=== PATIENT | male | born 1950 | race Caucasian/White ===

== ENCOUNTER 2023-10-27 21:29 | Inpatient (IN) | payer OTHER, SELFPAY ==
[2023-10-27 17:38] VITALS: BP 150/66
[2023-10-27 18:05] LABS: % Basophils 0.3 % (0-2); % Immature Granulocytes 0.8 % (0-0.5); % Monocytes 1.4 % (1.7-9.3); % Neutrophils 90.5 % (42.2-75.2); Absolute Immature Granulocytes 0.1 10^3/uL (0-0.05); Absolute Lymphocytes 0.5 10^3/uL (1.2-3.4); Absolute Monocytes 0.1 10^3/uL (0.1-0.6); Absolute Neutrophils 6.9 10^3/uL (1.4-6.5); Hematocrit 34.7 % (39.0-52.0); Hemoglobin 12.4 g/dL (13.0-18.0); Mean Corp Hgb Conc. 35.7 g/dL (33.0-37.0); Mean Corpuscular Hgb 32.5 pg (27.0-31.0); Mean Corpuscular Volume 90.8 fL (80.0-94.0); Mean Platelet Volume 10.3 fL (7.4-10.4); Nucleated Red Blood Cells % 0 % (-); Platelet Count 358 10^3/uL (130-400); Red Blood Cell Count 3.82 10^6/uL (4.70-6.10); Red Cell Dist. Width 15.7 % (11.5-14.5); White Blood Cell Count 7.7 10^3/uL (4.8-10.8)
[2023-10-27 18:18] LABS: Lactic Acid 1.3 mmol/L (0.7-2.0)
[2023-10-27 18:28] LABS: ALT (SGPT) 592 U/L (0-50); AST (SGOT) 392 U/L (17-59); Albumin 4.5 g/dl (3.5-5.0); Alkaline Phosphatase 825 U/L (38-126); Blood Urea Nitrogen 20 mg/dl (9-20); Calcium 9.7 mg/dl (8.4-10.2); Carbon Dioxide 23 mmol/L (22-30); Chloride 100 mmol/L (98-107); Glucose 207 mg/dl (70-99); Potassium 5.2 mmol/L (3.5-5.1); Sodium 131 mmol/L (135-145); Total Bilirubin 5.7 mg/dl (0.2-1.3); Total Protein 7.6 g/dl (6.3-8.2); eGFR > 60.00
--- NOTE | 2023-10-27 19:02 | ED.GENMED ---
History of Present Illness
<Mouna Grady PA-C - Last Filed: 11/05/23 22:41>
General
Chief Complaint: Abnormal Lab Value
Source: patient
Exam Limitations: none
Time Seen by Provider: 10/27/23 18:44
Nursing documentation reviewed up to this point in time: agreed with
Travel History
Have you had any contact with someone who has COVID-19?: No
Do you have any symptoms of coronavirus? Fever > 100 degrees, chills, cough, shortness of breath, sore throat, loss of taste or smell, muscle aches, or headache?: No
History of Present Illness
History of Present Illness:
Patient is a 72 year old male with hx HTN, HLD presenting for evaluation following abnormal lab results. He has been experiencing recent itchiness of his skin and yellowing of his skin and eyes for the past few days. He had lab work done from his
primary care provider which showed an elevated bilirubin over 8 yesterday and his primary care provider referred him to the emergency department for further evaluation. He also endorses recent intermittent heartburn over the past few weeks. He
denies any chest pain, shortness of breath, fevers, chills, weight loss. He denies any abdominal pain, nausea, vomiting, blood in stool. He denies any constipation or diarrhea. Patient had an appendectomy in May and .
Patient drinks 'a few 'beers per day. No recent travel or history of liver disease.
He was recently started on prednisone 2 days ago for the itching which has led to very minimal improvement.
Patient's mom from pancreatic cancer.
Past History
<Mouna Grady PA-C - Last Filed: 11/05/23 22:41>
Past History
ED Past Medical History: None
Social History
Living: with family
Phy Exam
<Mouna Grady PA-C - Last Filed: 11/05/23 22:41>
Physical Exam
Physical Exam:
General: In no apparent distress, non-toxic
Vitals: Hypertensive, otherwise vital signs stable; afebrile
HEENT: Atraumatic, normocephalic; pupils equal round reactive light bilaterally, scleral icterus bilaterally, protecting airway
Neck: appears supple, no meningeal signs
CV: Regular rate and rhythm, heart sounds normal no evidence of cyanosis
Resp: No evidence of respiratory distress, lungs clear, no accessory muscle use
Abd: Soft, nontender in all 4 quadrants, no rebound or guarding, non-distended, no abdominal ascites; negative Resendiz sign
Extremities: No deformities, no evidence of cyanosis or edema
Neuro: alert and oriented to person, place, time; speech normal, no focal neurologic deficits
Psych: Normal affect
Skin: Jaundice, scattered excoriation
Course
<Mouna Grady PA-C - Last Filed: 11/05/23 22:41>
Orders/Labs/Results
Orders:
Orders
10/27/23 17:54
Complete Blood Count/With Diff Urgent
Comprehensive Metabolic Panel Urgent
Direct Bilirubin Urgent
Lactic Acid Urgent
Lipase Urgent
Blood Culture Urgent
CARYN Source: Blood/Venous
Specimen Description:
10/27/23 19:34
Electrocardiogram (*1) Urgent
Reason for Study: Chest Pain
EKG- Treatment ONCE
10/27/23 19:37
Add On- LAB Urgent
Tests Added?: direct/ indirect billirubin
US Abdomen Complete/Upper Urgent
Comment:
Reason For Exam: jaundice, transaminitis
10/27/23 19:52
Hepatitis A IgM Antibody Urgent
Hepatitis B Core Ab, IgM Urgent
Hepatitis B Surface Antibody Urgent
Hepatitis B Surface Antigen Urgent
Hepatitis C Antibody Urgent
PTT Urgent
Prothrombin Time Urgent
Urinalysis Reflex To Culture Urgent
Date Specimen was Collected: 10/27/23
Time Specimen was Collected: 19:46
Urine Microscopic Reflex Cult Urgent
10/27/23 21:12
Admit/Transfer Patient As Directed
Co-Sign Provider:
Level of Care: Inpatient admission
Assign to:: Medical/Surgical
Physician / Group: Don
Diagnosis: Painless Jaundice
Reason for Hospitalization: Painless Jaundice
Expected length of stay greater than two midnights?: Yes
ELOS- Estimated Length of Stay in days: 2
I certify the patient meets the requirements for IP care: Yes
10/27/23 21:13
Code Status As Directed
Resuscitation Status: Full Code
10/27/23 22:16
0.9% Sodium Chloride 1000 ml [Nss] 1,000 ml IV 125 mls/hr
0.9% Sodium Chloride [Nss (Preservative Free)] See Protocol IV PRN PRN
FOLic ACID [Folvite] 1 mg 0.9% Sodium Chloride 50 ml [Nss] 50 ml IV DAILYPRN
Lorazepam [Ativan] 1 mg IV Q1HPRN PRN
Lorazepam [Ativan] 1 mg PO Q2HPRN PRN
Lorazepam [Ativan] 2 mg IV Q1HPRN PRN
Ondansetron Injectable [Zofran] 4 mg IV Q6HPRN PRN
10/27/23 22:16
Case Management Consult Once
Case Management Consult: Other
Comment: Substance abuse counseling
DIETARY CONSULT Routine
Reason for Consult: Nutrition support, possible refeeding guidelines
TSH Reflex To Free T4 Routine
Activity As Directed
Activity Level: Ambulate
With Assistance
Bladder Scan As Directed
Follow Bladder Retention/Intermittent Cath Algorithm?: Yes
PRN if no void in __ hours: 6
Frequency: Per Retention Algorithm
If Bladder Scan Result >: 400
then:: Straight cath
I/O [Intake/ Output] As Directed
Frequency: Per unit guidelines
MSAS SCORE As Directed
MSAS Score 0-4: Repeat MSAS every 2 hours until 0-4 for three consecutive assessments, then every 4 hours x 48
hours.
MSAS Score 5-7: For MILD withdrawl symptoms. Repeat MSAS and RASS every 2 hours
MSAS Score 8-11: For MODERATE withdrawal symptoms. Repeat MSAS and RASS every 1 hour. Consider ICU or IMU
level of care.
MSAS Score > 11: For SEVERE withdrawal symptoms. Repeat MSAS and RASS every 1 hour. Notify provider, consider
ICU level of care.
MSAS Additional Instructions: If no improvement or no decrease in score from severe to moderate within 12
hours, consult psychiatry
MSAS Notify Provider: Notify provider if patient requires more than 10 mg of Lorazepam in eight hour period.
Straight Cath As Directed
Frequency: Per Retention Algorithm
Additional Instructions: straight cath as needed per acute urinary retention algorithm for 24 hrs
Additional Instructions: for bladder scan greater than 400 mL
Vital Signs As Directed
Frequency: Per unit guidelines
Weight As Directed
Frequency: Daily
Oxygen Therapy [O2 Therapy] [RESP] Routine
Titrate/Wean O2 to maintain O2 sat greater than (%): 94
DX Deep Vein Thrombosis Video Routine
10/28/23 Breakfast
Clear Liquid
At Your Request: Full Participation
Does patient need a safe tray?: No
10/28/23 06:32
MRI Abdomen [MR Abdomen W/o & W Contrast] IN AM
Comment: MRCP
Reason For Exam: Painless Jaundice
Recent pill cam endoscopy?: No
10/28/23 07:17
Complete Blood Count/No Diff IN AM
Magnesium IN AM
10/28/23 08:00
Amlodipine Besylate/Benazepril [Lotrel 10 mg/20 mg] 1 capsule PO DAILY
Aspirin Low Dose EC [Aspir Low (Enteric Coated)] 81 mg PO DAILY
Atorvastatin [Lipitor] 20 mg PO DAILY
FOLic ACID [Folvite] 1 mg PO DAILY
Heparin 5,000 units SC Q12
Pantoprazole [Protonix IV] 40 mg IV DAILY
Thiamine Injection 200 mg IV Q12
10/31/23 08:00
Thiamine HCl [Vitamin B1] 100 mg PO BID
Abnormal Lab Results
10/27/23 10/27/23
17:54 19:52
RBC 3.82 L 10^6/uL
(4.70-6.10)
Hgb 12.4 L g/dL
(13.0-18.0)
Hct 34.7 L %
(39.0-52.0)
MCH 32.5 H pg
(27.0-31.0)
RDW 15.7 H %
(11.5-14.5)
Abs Immat Gran (auto) 0.1 H 10^3/uL
(0-0.05)
Absolute Neuts (auto) 6.9 H 10^3/uL
(1.4-6.5)
Absolute Lymphs (auto) 0.5 L 10^3/uL
(1.2-3.4)
Immature Gran % 0.8 H %
(0-0.5)
Neutrophils % 90.5 H %
(42.2-75.2)
Lymphocytes % 7.0 L %
(20.5-51.1)
Monocytes % 1.4 L %
(1.7-9.3)
Sodium 131 L mmol/L
(135-145)
Potassium 5.2 H mmol/L
(3.5-5.1)
Creatinine 0.5 L mg/dL
(0.7-1.3)
Glucose 207 H mg/dl
(70-99)
Total Bilirubin 5.7 H mg/dl
(0.2-1.3)
Direct Bilirubin 4.5 H mg/dl
(0.0-0.4)
AST 392 H U/L
(17-59)
ALT 592 H* U/L
(0-50)
Alkaline Phosphatase 825 H U/L
(38-126)
Lipase > 4000 H* U/L
(23-300)
Urine Bilirubin 1+ A
(Negative)
Leukocyte Esterase Rfl Trace A
(Negative)
Urine Glucose 2+ A
(Negative)
10/27/23 17:54
10/27/23 17:54
Vital Signs
Initial and Last Documented VS:
Initial Vital Signs
Temp Pulse Resp BP Pulse Ox
98.6 F 68 18 150/66 96
10/27/23 17:38 10/27/23 17:38 10/27/23 17:38 10/27/23 17:38 10/27/23 17:38
Last Documented Vital Signs
Temp Pulse Resp BP Pulse Ox
97.3 F 75 18 109/60 97
10/31/23 11:35 10/31/23 11:35 10/31/23 11:35 10/31/23 11:35 10/31/23 14:35
<Gus Kidd, DO - Last Filed: 10/28/23 03:14>
Orders/Labs/Results
Orders:
Orders
10/27/23 17:54
Complete Blood Count/With Diff Urgent
Comprehensive Metabolic Panel Urgent
Direct Bilirubin Urgent
Lactic Acid Urgent
Lipase Urgent
Blood Culture Urgent
CARYN Source: Blood/Venous
Specimen Description:
10/27/23 19:34
Electrocardiogram (*1) Urgent
Reason for Study: Chest Pain
EKG- Treatment ONCE
10/27/23 19:37
Add On- LAB Urgent
Tests Added?: direct/ indirect billirubin
US Abdomen Complete/Upper Urgent
Comment:
Reason For Exam: jaundice, transaminitis
10/27/23 19:52
Hepatitis A IgM Antibody Urgent
Hepatitis B Core Ab, IgM Urgent
Hepatitis B Surface Antibody Urgent
Hepatitis B Surface Antigen Urgent
Hepatitis C Antibody Urgent
PTT Urgent
Prothrombin Time Urgent
Urinalysis Reflex To Culture Urgent
Date Specimen was Collected: 10/27/23
Time Specimen was Collected: 19:46
Urine Microscopic Reflex Cult Urgent
10/27/23 21:12
Admit/Transfer Patient As Directed
Co-Sign Provider:
Level of Care: Inpatient admission
Assign to:: Medical/Surgical
Physician / Group: Don
Diagnosis: Painless Jaundice
Reason for Hospitalization: Painless Jaundice
Expected length of stay greater than two midnights?: Yes
ELOS- Estimated Length of Stay in days: 2
I certify the patient meets the requirements for IP care: Yes
10/27/23 21:13
Code Status As Directed
Resuscitation Status: Full Code
10/27/23 22:16
0.9% Sodium Chloride 1000 ml [Nss] 1,000 ml IV 125 mls/hr
0.9% Sodium Chloride [Nss (Preservative Free)] See Protocol IV PRN PRN
FOLic ACID [Folvite] 1 mg 0.9% Sodium Chloride 50 ml [Nss] 50 ml IV DAILYPRN
Lorazepam [Ativan] 1 mg IV Q1HPRN PRN
Lorazepam [Ativan] 1 mg PO Q2HPRN PRN
Lorazepam [Ativan] 2 mg IV Q1HPRN PRN
Ondansetron Injectable [Zofran] 4 mg IV Q6HPRN PRN
10/27/23 22:16
Case Management Consult Once
Case Management Consult: Other
Comment: Substance abuse counseling
DIETARY CONSULT Routine
Reason for Consult: Nutrition support, possible refeeding guidelines
TSH Reflex To Free T4 Routine
Activity As Directed
Activity Level: Ambulate
With Assistance
Bladder Scan As Directed
Follow Bladder Retention/Intermittent Cath Algorithm?: Yes
PRN if no void in __ hours: 6
Frequency: Per Retention Algorithm
If Bladder Scan Result >: 400
then:: Straight cath
I/O [Intake/ Output] As Directed
Frequency: Per unit guidelines
MSAS SCORE As Directed
MSAS Score 0-4: Repeat MSAS every 2 hours until 0-4 for three consecutive assessments, then every 4 hours x 48
hours.
MSAS Score 5-7: For MILD withdrawl symptoms. Repeat MSAS and RASS every 2 hours
MSAS Score 8-11: For MODERATE withdrawal symptoms. Repeat MSAS and RASS every 1 hour. Consider ICU or IMU
level of care.
MSAS Score > 11: For SEVERE withdrawal symptoms. Repeat MSAS and RASS every 1 hour. Notify provider, consider
ICU level of care.
MSAS Additional Instructions: If no improvement or no decrease in score from severe to moderate within 12
hours, consult psychiatry
MSAS Notify Provider: Notify provider if patient requires more than 10 mg of Lorazepam in eight hour period.
Straight Cath As Directed
Frequency: Per Retention Algorithm
Additional Instructions: straight cath as needed per acute urinary retention algorithm for 24 hrs
Additional Instructions: for bladder scan greater than 400 mL
Vital Signs As Directed
Frequency: Per unit guidelines
Weight As Directed
Frequency: Daily
Oxygen Therapy [O2 Therapy] [RESP] Routine
Titrate/Wean O2 to maintain O2 sat greater than (%): 94
DX Deep Vein Thrombosis Video Routine
10/28/23 Breakfast
Clear Liquid
At Your Request: Full Participation
Does patient need a safe tray?: No
10/28/23 06:32
MRI Abdomen [MR Abdomen W/o & W Contrast] IN AM
Comment: MRCP
Reason For Exam: Painless Jaundice
Recent pill cam endoscopy?: No
10/28/23 07:17
Complete Blood Count/No Diff IN AM
Magnesium IN AM
10/28/23 08:00
Amlodipine Besylate/Benazepril [Lotrel 10 mg/20 mg] 1 capsule PO DAILY
Aspirin Low Dose EC [Aspir Low (Enteric Coated)] 81 mg PO DAILY
Atorvastatin [Lipitor] 20 mg PO DAILY
FOLic ACID [Folvite] 1 mg PO DAILY
Heparin 5,000 units SC Q12
Pantoprazole [Protonix IV] 40 mg IV DAILY
Thiamine Injection 200 mg IV Q12
10/31/23 08:00
Thiamine HCl [Vitamin B1] 100 mg PO BID
Abnormal Lab Results
10/27/23 10/27/23
17:54 19:52
RBC 3.82 L 10^6/uL
(4.70-6.10)
Hgb 12.4 L g/dL
(13.0-18.0)
Hct 34.7 L %
(39.0-52.0)
MCH 32.5 H pg
(27.0-31.0)
RDW 15.7 H %
(11.5-14.5)
Abs Immat Gran (auto) 0.1 H 10^3/uL
(0-0.05)
Absolute Neuts (auto) 6.9 H 10^3/uL
(1.4-6.5)
Absolute Lymphs (auto) 0.5 L 10^3/uL
(1.2-3.4)
Immature Gran % 0.8 H %
(0-0.5)
Neutrophils % 90.5 H %
(42.2-75.2)
Lymphocytes % 7.0 L %
(20.5-51.1)
Monocytes % 1.4 L %
(1.7-9.3)
Sodium 131 L mmol/L
(135-145)
Potassium 5.2 H mmol/L
(3.5-5.1)
Creatinine 0.5 L mg/dL
(0.7-1.3)
Glucose 207 H mg/dl
(70-99)
Total Bilirubin 5.7 H mg/dl
(0.2-1.3)
Direct Bilirubin 4.5 H mg/dl
(0.0-0.4)
AST 392 H U/L
(17-59)
ALT 592 H* U/L
(0-50)
Alkaline Phosphatase 825 H U/L
(38-126)
Lipase > 4000 H* U/L
(23-300)
Urine Bilirubin 1+ A
(Negative)
Leukocyte Esterase Rfl Trace A
(Negative)
Urine Glucose 2+ A
(Negative)
10/27/23 17:54
10/27/23 17:54
Vital Signs
Initial and Last Documented VS:
Initial Vital Signs
Temp Pulse Resp BP Pulse Ox
98.6 F 68 18 150/66 96
10/27/23 17:38 10/27/23 17:38 10/27/23 17:38 10/27/23 17:38 10/27/23 17:38
Last Documented Vital Signs
Temp Pulse Resp BP Pulse Ox
97.3 F 75 18 109/60 97
10/31/23 11:35 10/31/23 11:35 10/31/23 11:35 10/31/23 11:35 10/31/23 14:35
<Mouna Grady PA-C - Last Filed: 11/05/23 22:41>
MDM/Problems Addressed
Differential Diagnosis Includes:
malignancy, choledocholithiasis, hepatitis, cirrhosis, CBD stricture, cholangitis
MDM/Problems Addressed:
Patient is a 72 year old male with hx HTN, HLD presenting for evaluation of full body itchiness in the setting of abnormal bilirubin levels on outpatient labwork. Patient had outpatient labwork performed yesterday which showed elevation in liver
enzymes and a bilirubin level of 8. Denies fever, chills, abdominal pain, headache, shortness of breath, weight loss. Of note- patients mother had a history of pancreatic cancer. Patient is hypertensive, otherwise has stable vital signs. Physical
exam as documented above. He has notable jaundice of skin and scleral icterus bilaterally. His abdomen is soft and nontender with a negative Resendiz sign. Will get basic labs, lipase, bilirubin and abdominal US. Will send hepatitis panel and coag
studies. Given age and history of nonpainful jaundice - malignancy is high on differential. Plan to admit for further workup pending initial labs.
CBC significant for mild anemia with hgb of 12.4.Coag studies normal. CMP with mild hyponatremia with na of 131, glucose of 207 - likely attributable to pancreas injury. Transaminitis with a bilirubin of 5.7. Lipase > 4000 indicating likely
pancreatic source. Will start IVF
US shows no acute findings and suggesting for further evaluation with MRI. Discussed with hospitalist. Will admit with acute pancreatitis of unclear etiology for further workup and MRI tomorrow.
Chronic conditions affecting care:
Hypertension, hyperlipidemia
Acute Exacerbation and/or Progression of Chronic Illness:
Acutely hypertensive
<Mouna Grady PA-C - Last Filed: 11/05/23 22:41>
*Radiology
Radiology exam reviewed: radiology read reviewed
*Pulse Oximetry
Patient hypoxic: no
*EKG
Interpreted by ED Provider?: Yes
EKG Intrepretation Date: 10/27/23
Interpretation: normal
Comparison EKG: no changes
Heart Rate: 62
Rate: normal
Rhythm: sinus
[place]: normal axis
Interval: normal interval
QRS Pattern: normal QRS
Ischemia: no ischemia
*Manager Garage Interpretation
Rate: Manager Garage- N/A
*Critical Care Note
Total Time (30-74mins, 75-104mins- exclusive of procedures): Not Applicable
Data Reviewed
Review of Other/Old Records Reveals: Labs
Source: records and spouse
<Mouna Grady PA-C - Last Filed: 11/05/23 22:41>
Patient Management
Discussion with other providers: Hospitalist
ED Attending Note
<Mouna Grady PA-C - Last Filed: 11/05/23 22:41>
-
Portions of this chart may have been created with voice recognition software.� Occasional wrong word or��sound alike� substitutions may have occurred due to the inherent limitations of voice recognition software.
<Gus Kidd DO - Last Filed: 10/28/23 03:14>
ED Attending Note
Patient seen and examined by attending physician: Yes
I performed a history and physical exam of patient and discussed management with resident, I reviewed resident's note and agree with documented findings and plan of care.: Yes
ED Attending Note:
I have reviewed and agree with history and treatment plan by Mouna Grady. My exam revealed 72-year-old male with soft abdomen, sclera anicteric, jaundice. Ultrasound concerning for possible hepatitis. Acute inflammatory changes of pancreas.
Lipase elevated, consistent with pancreatitis. Unclear origin, will require admission and further evaluation with MRCP
Discharge Plan
Departure
Patient Disposition: Admit
Date of Disposition: 10/27/23
Time of Disposition: 20:28
Presentation/result/management discussed w/ accepting MD/DO: Hospitalist
Discharge Problem:
Acute pancreatitis, Jaundice, Hyperbilirubinemia, Transaminitis
Interventions
Interventions:
*Risk Screen - Suicide Last Done: 10/27/23 17:38
*General Assessment Last Done: 10/27/23 17:38
*Neglect/Abuse Screening Last Done: 10/27/23 17:38
*ED COVID-19 Vaccine History Last Done: 10/27/23 19:44
*Nursing Disposition Last Done: 10/27/23 22:27
Discharge Date and Time
Discharge Date/Time: 10/27/23 22:27
[2023-10-27 19:33] LABS: Lipase > 4000 U/L (23-300)
[2023-10-27 19:44] VITALS: BMI 23.1
[2023-10-27 19:56] VITALS: BP 143/65
[2023-10-27 20:09] LABS: Urine Albumin Negative (Neg - Trace); Urine Bilirubin 1+ (Negative); Urine Character Clear (Clear); Urine Color Yellow; Urine Glucose 2+ (Negative); Urine Ketone Negative (Negative); Urine Leukocyte Trace (Negative); Urine Nitrite Negative (Negative); Urine Occult Blood Negative (Negative); Urine Urobilinogen Negative (Neg - 1+)
[2023-10-27 20:13] LABS: APTT 26.4 Sec (23.4-35.0); INR 0.97; PT 12.7 Sec (11.4-14.6)
[2023-10-27 20:27] LABS: Urine Red Blood Cell None Seen /HPF (0-2); Urine White Cell 0-2 /HPF (0-5)
[2023-10-27 20:31] LABS: Direct Bilirubin 4.5 mg/dl (0.0-0.4)
--- NOTE | 2023-10-27 21:19 | HPS.HSE ---
Family Physician
-
Family Physician: Lester Clarke
Chief Complaint
-
Itching.
History of Present Illness
Patient is a 72y M with PMH significant for PAD, cervical DDD and hypertension who presents to ED complaining of itching. Patient states that he developed itching from head-to-toe on Monday of this week. He was seen by his PCP and started on a
prednisone taper yesterday and had labs drawn. Today he was contacted and advised that his bilirubin was very elevated. Today, his noted that he was grossly jaundiced and encouraged him to present to the ED.
Patient denies any abdominal pain, N/V/D, fevers / chills, etc.
He reports heartburn / indigestion symptoms that have been present for the past 2-3 weeks, but more severe over the past 2-3 days. He notes that symptoms are worse with drinking liquids / swallowing saliva.
He reports increase in frequency of stooling and notes that his stools are formed and paresh-colored.
Patient is a former smoker. He drinks 2-3 alcoholic beverages daily. he has a family history of GI malignancy, including pancreatic cancer in his mother.
Medical History
Past Medical History
Past Medical History: Reports Other
Additional Past Medical History:
ASCVD / PAD
Hypertension
Past Surgical History: Reports Other
Additional Past Surgical History:
Appendectomy
Cervical Spine Surgery
Social History
Tobacco: Former Smoker (Quit smoking 5 years ago. Approx 50 pack years total use.)
Alcohol: Daily (2-3 drinks daily.)
Drug: Marijuana (Occasional.)
Personal:
Living: With Family
Family History
Family History: Other (Mother: Pancreatic Cancer Father: Throat Cancer, CVA Brother: Liver Cancer )
Allergies / Home Medications
Allergies reflects when Allergies were last updated in [facility].
Home Medications with original date entered in [facility]
Allergy/Medication List:
Allergies
Allergy/AdvReac Type Severity Reaction Status Date / Time
bee pollen Allergy Anaphylaxis Verified 10/27/23 17:37
Home Medications
amlodipine 10 mg-benazepril 20 mg capsule 1 cap PO DAILY Blood Pressure 05/28/23
ascorbic acid (vitamin C) 1,000 mg tablet (Vitamin C) 1,000 mg PO DAILY Supplement ##0 05/28/23
aspirin 81 mg tablet,delayed release 81 mg PO DAILY Blood Clot Prevention/Tx 05/28/23
atorvastatin 20 mg tablet 20 mg PO DAILY High Cholesterol 05/28/23
cholecalciferol (vitamin D3) 125 mcg (5,000 unit) tablet (Vitamin D3) 125 mcg PO DAILY Supplement ##0 05/28/23
coenzyme Q10 200 mg capsule (Co Q-10) 200 mg PO DAILY Supplement ##0 05/28/23
vitamin B complex 1 tab PO DAILY Supplement ##0 05/28/23
multivitamin 1 tab PO DAILY 10/27/23
prednisone 10 mg tablet 10 mg PO .TAPER 10/27/23
zinc acetate 50 mg (zinc) capsule 50 mg PO DAILY 10/27/23
Review of Systems
-
History Source: Patient
A 12 point ROS was completed and negative except as noted: Yes
Constitutional: Denies Fever, Weight Gain, Weight Loss, Fatigue or Chills
EENT: Denies Sore Throat
Respiratory: Denies Cough or Trouble Breathing
Cardiac: Denies Chest Pain or Palpitations
Abdomen/GI: Reports Other (Change in stools.); Denies Abdominal Pain, Nausea, Vomiting or Diarrhea
: Denies Dysuria or Frequency
Skin: Reports Other (Jaundice / Itching)
Neurological: Denies Dizzy or Headache
Psych: Denies Depression or Anxiety
Physical Exam
Vital Signs
Vital Signs
Temp Pulse Resp BP Pulse Ox
98.6 F 61 16 143/65 97
10/27/23 17:38 10/27/23 19:56 10/27/23 19:56 10/27/23 19:56 10/27/23 19:56
Physical Exam
General: Other (72y M in no acute distress.)
HEENT: Moist mucous membranes, PERRLA and Other (Scleral icterus)
Respiratory: Clear; No Wheezes, Rales or Rhonchi
Cardiac: S1/S2, Regular Rhythm and Murmur (II/ BROOKE)
GI: Soft, Non Tender, Non Distended and Normal Bowel Sounds
Musculoskeletal: No Clubbing, No Cyanosis and No Edema
Skin: Other (Grossly jaundiced)
Neuro: AO x 3
Psych: No Anxious or Depressed
Laboratory Results
-
10/27/23 17:54
10/27/23 17:54
Laboratory Results
PT 12.7 Sec (11.4-14.6) 10/27/23 19:52
INR 0.97 10/27/23 19:52
APTT 26.4 Sec (23.4-35.0) 10/27/23 19:52
Lactic Acid 1.3 mmol/L (0.7-2.0) 10/27/23 17:54
Total Bilirubin 5.7 mg/dl (0.2-1.3) H 10/27/23 17:54
AST 392 U/L (17-59) H 10/27/23 17:54
ALT 592 U/L (0-50) H* 10/27/23 17:54
Alkaline Phosphatase 825 U/L (38-126) H 10/27/23 17:54
Lipase > 4000 U/L (23-300) H* 10/27/23 17:54
Impression/Plan
-
A/P: Patient is a 72y M with PMH significant for ASCVD / PAD and hypertension who presents to ED for evaluation of itching and jaundice.
Painless Jaundice
Abnormal LFTs
- Admit for further evaluation and treatment.
- MRI / MRCP in the AM for further evaluation.
- GI consult for additional recommendations.
- Supportive care.
- Follow for any new / worsening symptoms.
ASCVD / PAD
- Stable. Documented PAD with no prior intervention(s).
- Continue ASA / statin.
- Follow for any new symptoms.
Benign Hypertension
- Stable. Continue amlodipine with holding parameters.
Mild Hyperkalemia
- IVF overnight. Hold RUFINA inhibitor acutely.
Alcohol Use Disorder
- Patient reports daily EtOH intake, 2-3 drinks per day.
- Follow MSAS and treat withdrawal symptoms if needed.
- Low risk thiamine, folate replacement, etc.
DVT Prophylaxis: Subcut Heparin
Code Status: Full
[2023-10-27 22:23] VITALS: BP 154/57; BMI 22.9
[2023-10-27] MEDS: NSS 1000 IV (22:40)
--- NOTE | 2023-10-27 23:00 | PTCARENOTE ---
Received patient from ER AAOx4. Patient ambulating with steady gait. No c/o pain, skin yellow in appearance. Oriented to unit, call cronin in reach. Plan of care continues.
[2023-10-28] MEDS: NSS 1000 IV ×3 (05:33→23:13)
[2023-10-28 06:00] VITALS: BMI 22.9
[2023-10-28 07:30] VITALS: BP 160/63
[2023-10-28 08:08] LABS: Hematocrit 32.4 % (39.0-52.0); Hemoglobin 11.6 g/dL (13.0-18.0); Mean Corp Hgb Conc. 35.8 g/dL (33.0-37.0); Mean Corpuscular Hgb 32.1 pg (27.0-31.0); Mean Corpuscular Volume 89.8 fL (80.0-94.0); Mean Platelet Volume 10.4 fL (7.4-10.4); Platelet Count 354 10^3/uL (130-400); Red Blood Cell Count 3.61 10^6/uL (4.70-6.10); Red Cell Dist. Width 15.4 % (11.5-14.5); White Blood Cell Count 8.6 10^3/uL (4.8-10.8)
[2023-10-28] MEDS: LOTREL 10 MG/20 MG 1 CAPSULE PO (08:27)
[2023-10-28] MEDS: ASPIR LOW (ENTERIC COATED) 81 MG PO (08:27)
[2023-10-28] MEDS: FOLVITE 1 MG PO (08:27)
[2023-10-28] MEDS: LIPITOR 20 MG PO (08:27)
[2023-10-28] MEDS: HEPARIN 5000 UNITS SC ×2 (08:27→20:17)
[2023-10-28] MEDS: PROTONIX IV 40 MG IV (08:28)
[2023-10-28] MEDS: THIAMINE INJECTION 200 MG IV ×2 (08:29→20:20)
[2023-10-28] MEDS: NSS (PRESERVATIVE FREE) 10 ML IV (08:29)
[2023-10-28 08:37] LABS: ALT (SGPT) 540 U/L (0-50); AST (SGOT) 357 U/L (17-59); Alkaline Phosphatase 764 U/L (38-126); Blood Urea Nitrogen 17 mg/dl (9-20); Calcium 9.2 mg/dl (8.4-10.2); Carbon Dioxide 21 mmol/L (22-30); Chloride 104 mmol/L (98-107); Direct Bilirubin 3.8 mg/dl (0.0-0.4); Estimated Creatinine Clearance 116 ml/min; Glucose 104 mg/dl (70-99); Magnesium 2.1 mg/dl (1.6-2.3); Potassium 4.6 mmol/L (3.5-5.1); Sodium 133 mmol/L (135-145); Total Protein 6.7 g/dl (6.3-8.2); eGFR > 60.00
[2023-10-28 09:03] LABS: TSH Reflex To Free T4 0.91 uIU/ml (0.47-4.68)
--- NOTE | 2023-10-28 09:41 | CON.GI ---
Addendum entered and electronically signed by Maria De Jesus Leon DO 10/28/23 14:55:
This note was created using a voice recognition software and please excuse any apparent errors.
Ross is a 72-year-old male with history of cervical spinal fusion, hypertension, recent partial cecectomy/appendectomy in May 2023 sent by his PCP for abnormal blood work with a mixed hepatocellular, cholestatic liver injury with no
significant abdominal pain with painless jaundice and diffuse pruritus. The patient states all the symptoms have been ongoing for the past week and nothing prior. His lipase was also greater than 4000 but he has no signs of pancreatitis clinically
with no history of pancreatitis. He denies any weight loss or drastic change in appetite. He has noticed his stools have become blanco in color in his urine dark. He is a non-smoker. He is a moderate drinker drinking 1-2 beers and possibly wine at
night. His is at bedside showed me his outpatient labs which showed a total bilirubin of 8.1 and alkaline phosphatase in the 900s.
Because of the pruritus his PCP gave him prednisone which she said did mildly help.
Here he had an ultrasound showing a dilated common bile duct, a distended gallbladder to 10.5 cm with no wall thickening. This led to an MRI which the read is pending but upon my read his gallbladder significantly distended with both intra and
extrahepatic ductal dilatation with a prominent pancreatic duct. Again awaiting final read.
His mother from pancreatic cancer and states his father had primary liver cancer.
He is hungry. The only GI symptoms he stated was some mild belching and indigestion with some mild burning but no nausea or vomiting.
Overall, I am concerned that he has a malignant obstructive process in the setting of painless jaundice with both dilation of the pancreatic and biliary ducts.
He is okay for regular diet and will await the final read on the MRI
Original Note:
Consultation
-
Date/Time Consultation Requested: 10/27/23 6487
Date/Time Consultation Performed: 10/28/23 3233
Requesting Provider: Charles Ochoa DO
Performing Provider: Becki KrineyLYNETTE Kiley Walp,
Reason for Consultation: jaundice
Medical History
Chief Complaint / HPI
Chief Complaint: itchiness, jaundice
History of Present Illness:
Pt is a 72yo with hx cervical spinal fusion, HTN, hyperlipidemia, PAD(no prior intervention), appe with partial cecectomy and preservation of IC valve and TI in 05/2023 now presents with onset of itching, jaundice, indigestion, and abnormal labs.
Pt was given Prednisone with minimal improvement. On admission patient was noted with bili 5.7, d bili 4.5, AST 392, ALT 592 alk phos 825 and lipase >4000. US on admission with noted Hydropic gallbladder. Trace sludge. No gallstones. No
sonographic evidence of acute cholecystitis.Abnormal sonographic appearance of the liver, as described, suggesting hepatocellular inflammatory changes, such as hepatitis. Clinical correlation recommended.Mild intrahepatic ductal dilatation. Dilated
common bile duct.Subtle pancreatic parenchymal heterogeneity which could reflect colonic or acute inflammatory changes. In addition, there is mild distention of the main pancreatic duct. I also reviewed CT from May 2023 with acute appendicitis,
hepatic steatosis, enlarged prostates, iliac stenosis , mild GBWT without fluid, no ductal dilation, pancreas and spleen normal.
I reviewing with patient symptoms started about 1 weeks ago. No wt loss but some indigestion. He denies dysphagia, nausea, vomiting, abdominal pain, diarrhea, constipation, blood or black in stools. No prior EGD but colonoscopy 09/2022 with
[facility] normal.
.
Past Medical History
Past Medical History: HTN, Hypercholesterolemia and Other (ASCVD, PAD, DDD)
Past Surgical History: Appendectomy (with partial cecectomy and preservation of IC valve and TI), Orthopedic (cervical fusion, knee arthroscopy) and Tonsilectomy
Social History
Tobacco: Former Smoker (quit 2019)
Alcohol: Daily (several beer occasional wine)
Drug: None
Personal:
Living: With Family
Employment: Retired
Family History
Family History: Other (mother with pancreatic CA, brother with intestinal CA)
Allergies / Home Medications
Allergy/AdvReac Type Severity Reaction Status Date / Time
bee pollen Allergy Anaphylaxis Verified 10/27/23 17:37
Medication Instructions Recorded
amlodipine 10 mg-benazepril 20 mg 1 cap PO DAILY Blood Pressure 05/28/23
capsule
ascorbic acid (vitamin C) 1,000 mg 1,000 mg PO DAILY Supplement ##0 05/28/23
tablet (Vitamin C)
aspirin 81 mg tablet,delayed 81 mg PO DAILY Blood Clot 05/28/23
release Prevention/Tx
atorvastatin 20 mg tablet 20 mg PO DAILY High Cholesterol 05/28/23
cholecalciferol (vitamin D3) 125 125 mcg PO DAILY Supplement ##0 05/28/23
mcg (5,000 unit) tablet (Vitamin
D3)
coenzyme Q10 200 mg capsule (Co 200 mg PO DAILY Supplement ##0 05/28/23
Q-10)
vitamin B complex 1 tab PO DAILY Supplement ##0 05/28/23
multivitamin 1 tab PO DAILY 10/27/23
prednisone 10 mg tablet 10 mg PO .TAPER 10/27/23
zinc acetate 50 mg (zinc) capsule 50 mg PO DAILY 10/27/23
Review of Systems
-
History Source: Patient
Constitutional: Reports Other (jaundice)
EENT: Reports No Symptoms
Respiratory: Reports No Symptoms
Cardiac: Reports No Symptoms
Abdomen/GI: Reports Other (indigestion)
: Reports No Symptoms
Musculoskeletal: Reports No Symptoms
Skin: Reports Itching
Endocrine: Reports No Symptoms
Hematologic/Lymphatic: Reports No Symptoms
Vital Signs
Temp Pulse Resp BP Pulse Ox
97.5 F 60 18 160/63 95
10/28/23 07:30 10/28/23 08:27 10/28/23 07:30 10/28/23 08:27 10/28/23 07:30
Physical Exam
Exam
General: Well Developed and Well Nourished
HEENT: Other (mild jaundice )
Respiratory: Clear
Cardiac: Regular Rhythm
GI: Soft, Non Tender and Non Distended
Musculoskeletal: No Clubbing and No Cyanosis
Skin: Warm and Dry
Neuro: Awake, Alert and AO x 3
Psych: Calm
Results
WBC 8.6 10^3/uL (4.8-10.8) 10/28/23 07:17
Hgb 11.6 g/dL (13.0-18.0) L 10/28/23 07:17
Hct 32.4 % (39.0-52.0) L 10/28/23 07:17
MCV 89.8 fL (80.0-94.0) 10/28/23 07:17
Plt Count 354 10^3/uL (130-400) 10/28/23 07:17
Absolute Neuts (auto) 6.9 10^3/uL (1.4-6.5) H 10/27/23 17:54
PT 12.7 Sec (11.4-14.6) 10/27/23 19:52
INR 0.97 10/27/23 19:52
APTT 26.4 Sec (23.4-35.0) 10/27/23 19:52
Sodium 133 mmol/L (135-145) L 10/28/23 07:17
Potassium 4.6 mmol/L (3.5-5.1) 10/28/23 07:17
Chloride 104 mmol/L (98-107) 10/28/23 07:17
Carbon Dioxide 21 mmol/L (22-30) L 10/28/23 07:17
BUN 17 mg/dl (9-20) 10/28/23 07:17
Creatinine 0.5 mg/dL (0.7-1.3) L 10/28/23 07:17
Calcium 9.2 mg/dl (8.4-10.2) 10/28/23 07:17
Total Bilirubin 5.0 mg/dl (0.2-1.3) H 10/28/23 07:17
AST 357 U/L (17-59) H 10/28/23 07:17
ALT 540 U/L (0-50) H* 10/28/23 07:17
Alkaline Phosphatase 764 U/L (38-126) H 10/28/23 07:17
Lipase > 4000 U/L (23-300) H* 10/27/23 17:54
Diagnostic Image Results:
10/27/23 US abdomen:
Hydropic gallbladder. Trace sludge. No gallstones. No sonographic evidence of acute cholecystitis.
Abnormal sonographic appearance of the liver, as described, suggesting hepatocellular inflammatory changes, such as hepatitis. Clinical correlation recommended.
Mild intrahepatic ductal dilatation. Dilated common bile duct.
Subtle pancreatic parenchymal heterogeneity which could reflect colonic or acute inflammatory changes. In addition, there is mild distention of the main pancreatic duct.
Recommend further evaluation/follow-up nonemergent MRI with MRCP.
05/2023 CT
1. � ACUTE APPENDICITIS without CT evidence for periappendiceal abscess.
2. � 2.7 cm focal region of wall thickening in the cecum at the base of the appendix. Diagnostic possibilities are (1) reactive wall thickening secondary to infection or (2) a cecal carcinoma obstructing the appendiceal orifice.
3. � No CT evidence for mesenteric lymphadenopathy.
4. � Mild diffuse hepatic steatosis.
5. � Moderate to severe diverticulosis in the sigmoid colon.
6. � Moderate to severe enlargement of the prostate gland causing chronic urinary bladder outlet obstruction.
7. � Severe calcific atherosclerotic plaque in the abdominal aorta, iliac, and femoral arteries.
8. � Greater than 70% diameter stenoses in both common iliac arteries caused by severe calcific atherosclerotic plaque.
�The liver is normal in size measuring 16.5 cm in length. There is mild diffusely decreased attenuation throughout the liver suggesting mild diffuse hepatic steatosis. There is mild diffuse gallbladder wall thickening and hyperenhancement without
evidence for pericholecystic inflammation. There is no abnormal biliary dilatation. The pancreas and adrenal glands appear normal. The spleen is normal in size. The kidneys are normal in size without evidence for hydronephrosis. There is a 1.3 cm
cyst exophytic from the upper pole of the left kidney.
Prior GI Procedures:
EGD: none
Colonoscopy: Dr. Jean-Baptiste 09/2022 normal
Assessment / Plan
-
Pt is a 72yo with hx cervical spinal fusion, HTN, hyperlipidemia, PAD(no prior intervention), appe with partial cecectomy and preservation of IC valve and TI in 05/2023 now presents with onset of itching, jaundice, indigestion and abnormal labs. Pt
was given Prednisone with minimal improvement. On admission patient was noted with bili 5.7, d bili 4.5, AST 392, ALT 592, alk phos 825 and lipase >4000. US on admission with noted Hydropic gallbladder. Trace sludge. No gallstones. No sonographic
evidence of acute cholecystitis.Abnormal sonographic appearance of the liver, as described, suggesting hepatocellular inflammatory changes, such as hepatitis. Clinical correlation recommended.Mild intrahepatic ductal dilatation. Dilated common bile
duct.Subtle pancreatic parenchymal heterogeneity which could reflect colonic or acute inflammatory changes. In addition, there is mild distention of the main pancreatic duct. I also reviewed CT from May 2023 with acute appendicitis, hepatic
steatosis, enlarged prostates, iliac stenosis , mild GBWT without fluid, no ductal dilation, pancreas and spleen normal.
-jaundice with mild GERD
-increased LFT's and lipase
-puritis
-hepatic steatosis
-mild GBWT on Ct in May/hypopic GB on US on admission
-daily ETOH use
other medical problems:
-PAD with iliac stenosis follows with Dr. Conley
-cervical fusion
-HTN
-hyperlipidemia
-appe with partial cecectomy 05/2023
-hx prior tobacco abuse
-family hx mother with pancreatic CA and brother with intestinal CA
PLAN:
etiology of symptom with painless jaundice with rise in LFT's and lipase concern for biliary obstructive process with mild intrahepatic ductal dilation, CBD 1.3 cm and slight prominence of pancreatic duct, -- stone, vs mass vs ETOH (though normal
Platelets, INR, albumin) other
await MRI with MRCP
trend labs
prednisone held for now
clear diet -- advance pending plan after MRI reviewed
will follow
-
-
-
Thank you for consultation and allowing me to participate in the patient's care. Please call the front end loader operator GI physician during the after hours with any questions or concerns.
--- NOTE | 2023-10-28 12:24 | PTCARENOTE ---
Pt off floor to MRI on stretcher, A+Ox3
--- NOTE | 2023-10-28 12:24 | W.PN.HOSP.TC ---
Today's Communication/Plan
-
See bold
Assessment / Plan
Assessment / Plan
72y M with PMH significant for ASCVD / PAD and hypertension who presents to ED for evaluation of itching and jaundice.
Gen: NAD, AAOx3.
Eyes: EOMI, PERRLA, mild scleral icterus.
Neck: supple.
CV: RRR, +S1/S2, no m/r/g.
Resp: CTAB, no rales, wheezes, or rhonchi.
Abd: +BS, soft, NT, ND
Skin: No rashes.
Neuro: CN 2-12 intact, non-focal.
Psych: Normal mood and affect.
Abd U/S: Hydropic gallbladder. Trace sludge. No gallstones. No sonographic evidence of acute cholecystitis. Abnormal sonographic appearance of the liver, as described, suggesting hepatocellular inflammatory changes, such as hepatitis. Clinical
correlation recommended. Mild intrahepatic ductal dilatation. Dilated common bile duct. Subtle pancreatic parenchymal heterogeneity which could reflect colonic or acute inflammatory changes. In addition, there is mild distention of the main
pancreatic duct.
Acute pancreatitis:
-painless Jaundice, abnormal LFTs
-lipase > 4000
-check MRI abd/MRCP
-IVFs
-GI following
-clears
Other problems:
ASCVD/PAD: cont ASA, hold statin.
Essential hypertension: cont Norvasc/ACEi
Mild Hyperkalemia, resolved
Alcohol abuse Disorder: daily 2-3 drinks/day. MSAS/thiamin/folate
Mild hyponatremia
FULL/Heparin
Anticipated Discharge: > 48 hours
Subjective/Interval History
-
Date of Service: October 28, 2023
Denies abdominal pain.
Objective Data
-
Labs:
Laboratory Results
10/28/23
07:17
WBC 8.6
Hgb 11.6 L
Hct 32.4 L
Plt Count 354
Sodium 133 L
Potassium 4.6
Chloride 104
Carbon Dioxide 21 L
BUN 17
Creatinine 0.5 L
Glucose 104 H
Calcium 9.2
Total Bilirubin 5.0 H
AST 357 H
ALT 540 H*
Alkaline Phosphatase 764 H
Vital Signs:
Vital Signs
Temp Pulse Resp BP Pulse Ox
97.5 F 60 18 160/63 95
10/28/23 07:30 10/28/23 08:27 10/28/23 07:30 10/28/23 08:27 10/28/23 07:30
I&O
10/27/23 10/28/23 10/29/23
06:59 06:59 06:59
Intake Total 480 / 480
Balance 480 / 480
--- NOTE | 2023-10-28 14:07 | PTCARENOTE ---
Pt back to the floor from MRI, pt able to walk to the bathroom from the stretcher w/o incident. A+Ox3.
[2023-10-28 15:25] VITALS: BP 146/66
--- NOTE | 2023-10-28 17:09 | CM ---
Alert awake oriented patient who lives with his Jo who lives in [facility] with 4 step to enter and bed and bathroom on first floor. He is independent in driving and in all activities of daily living.He was offered VN he declined
need.Offered substance abuse counselling he declined need .
No VN/SNF history
[facility]
PCP DR Lester Clarke
PLAN Home Declined VN
[2023-10-28] MEDS: BENADRYL 25 MG PO (20:50)
[2023-10-28 23:51] VITALS: BP 139/61
[2023-10-29 06:00] VITALS: BMI 22.5
[2023-10-29] MEDS: NSS 1000 IV (06:13)
[2023-10-29 07:00] VITALS: BP 168/65
[2023-10-29 07:35] LABS: Hematocrit 34.9 % (39.0-52.0); Hemoglobin 12.6 g/dL (13.0-18.0); Mean Corp Hgb Conc. 36.1 g/dL (33.0-37.0); Mean Corpuscular Hgb 32.6 pg (27.0-31.0); Mean Corpuscular Volume 90.2 fL (80.0-94.0); Mean Platelet Volume 10.6 fL (7.4-10.4); Platelet Count 349 10^3/uL (130-400); Red Blood Cell Count 3.87 10^6/uL (4.70-6.10); Red Cell Dist. Width 15.2 % (11.5-14.5); White Blood Cell Count 7.1 10^3/uL (4.8-10.8)
[2023-10-29 07:36] LABS: INR 1.04; PT 13.4 Sec (11.4-14.6)
[2023-10-29 08:07] LABS: ALT (SGPT) 635 U/L (0-50); AST (SGOT) 452 U/L (17-59); Alkaline Phosphatase 789 U/L (38-126); Blood Urea Nitrogen 13 mg/dl (9-20); Calcium 9.4 mg/dl (8.4-10.2); Carbon Dioxide 26 mmol/L (22-30); Chloride 102 mmol/L (98-107); Estimated Creatinine Clearance 113 ml/min; Glucose 102 mg/dl (70-99); Potassium 4.4 mmol/L (3.5-5.1); Sodium 135 mmol/L (135-145); Total Bilirubin 7.9 mg/dl (0.2-1.3); Total Protein 6.9 g/dl (6.3-8.2); eGFR > 60.00
[2023-10-29] MEDS: ASPIR LOW (ENTERIC COATED) 81 MG PO (09:06)
[2023-10-29] MEDS: LOTREL 10 MG/20 MG 1 CAPSULE PO (09:06)
[2023-10-29] MEDS: FOLVITE 1 MG PO (09:06)
[2023-10-29] MEDS: THIAMINE INJECTION 200 MG IV ×2 (09:07→20:18)
[2023-10-29] MEDS: HEPARIN 5000 UNITS SC ×2 (09:08→20:19)
[2023-10-29] MEDS: PROTONIX IV 40 MG IV (09:10)
[2023-10-29] MEDS: NSS (PRESERVATIVE FREE) 10 ML IV (09:10)
--- NOTE | 2023-10-29 10:44 | W.PN.HOSP.TC ---
Today's Communication/Plan
-
see bold
Assessment / Plan
Assessment / Plan
72y M with PMH significant for ASCVD / PAD and hypertension who presents to ED for evaluation of itching and jaundice.
Gen: NAD, AAOx3.
Eyes: EOMI, PERRLA, mild scleral icterus.
Neck: supple.
CV: remains RRR, +S1/S2, no m/r/g.
Resp: remains CTAB, no rales, wheezes, or rhonchi.
Abd: remains +BS, soft, NT, ND
Skin: No rashes.
Neuro: CN 2-12 intact, non-focal.
Psych: Normal mood and affect.
Abd U/S: Hydropic gallbladder. Trace sludge. No gallstones. No sonographic evidence of acute cholecystitis. Abnormal sonographic appearance of the liver, as described, suggesting hepatocellular inflammatory changes, such as hepatitis. Clinical
correlation recommended. Mild intrahepatic ductal dilatation. Dilated common bile duct. Subtle pancreatic parenchymal heterogeneity which could reflect colonic or acute inflammatory changes. In addition, there is mild distention of the main
pancreatic duct.
MRI abd/MRCP: Intrahepatic and extrahepatic biliary ductal dilatation without evidence to suggest choledocholithiasis or stricture. No definite pancreatic head mass. Possible considerations may include choledochocele or sphincter of Royce
dysfunction. Recommend further evaluation/follow-up ERCP. Hydropic gallbladder. Gallbladder wall thickness top normal with suggestion of possible subtle adenomyomatosis.
Acute pancreatitis:
-painless Jaundice, abnormal LFTs
-lipase > 4000
-MRI abd/MRCP above, notable for intrahepatic and extrahepatic biliary ductal dilatation without choledocholithiasis or stricture, no pancreatic head mass.
-LFTs not improving
-cont IVFs
-GI following. Discussed with Dr. Leon. EUS/ERCP tomorrow.
-currently on regular diet
Other problems:
ASCVD/PAD: cont ASA, hold statin.
Essential hypertension: cont Norvasc/ACEi
Mild Hyperkalemia, resolved
Alcohol abuse Disorder: daily 2-3 drinks/day. MSAS/thiamine/folate.
Mild hyponatremia
FULL/Heparin
Anticipated Discharge: 24 - 48 hours
Subjective/Interval History
-
Date of Service: October 29, 2023
Pt denies CP/SOB.
Objective Data
-
Labs:
Laboratory Results
10/29/23
06:50
WBC 7.1
Hgb 12.6 L
Hct 34.9 L
Plt Count 349
PT 13.4
INR 1.04
Sodium 135
Potassium 4.4
Chloride 102
Carbon Dioxide 26
BUN 13
Creatinine 0.6 L
Glucose 102 H
Calcium 9.4
Total Bilirubin 7.9 H D
AST 452 H
ALT 635 H*
Alkaline Phosphatase 789 H
Vital Signs:
Vital Signs
Temp Pulse Resp BP Pulse Ox
98 F 63 18 168/65 96
10/29/23 07:00 10/29/23 07:00 10/29/23 07:00 10/29/23 07:00 10/29/23 08:00
I&O
10/28/23 10/29/23 10/30/23
06:59 06:59 06:59
Intake Total 1979
Balance 1979
[2023-10-29] MEDS: LIPITOR PO (11:34)
--- NOTE | 2023-10-29 11:49 | W.PN.GI.CBS2 ---
Today's Communication / Plan
-
N.p.o. for midnight for EUS/ERCP tomorrow afternoon with Dr. Bojorquez
Assessment / Plan
-
Pt is a 72yo with hx cervical spinal fusion, HTN, hyperlipidemia, PAD(no prior intervention), appe with partial cecectomy and preservation of IC valve and TI in 05/2023 now presents with onset of itching, jaundice, indigestion and abnormal labs. Pt
was given Prednisone with minimal improvement. On admission patient was noted with bili 5.7, d bili 4.5, AST 392, ALT 592, alk phos 825 and lipase >4000. US on admission with noted Hydropic gallbladder. Trace sludge. No gallstones. No sonographic
evidence of acute cholecystitis.Abnormal sonographic appearance of the liver, as described, suggesting hepatocellular inflammatory changes, such as hepatitis. Clinical correlation recommended.Mild intrahepatic ductal dilatation. Dilated common bile
duct.Subtle pancreatic parenchymal heterogeneity which could reflect colonic or acute inflammatory changes. In addition, there is mild distention of the main pancreatic duct. I also reviewed CT from May 2023 with acute appendicitis, hepatic
steatosis, enlarged prostates, iliac stenosis , mild GBWT without fluid, no ductal dilation, pancreas and spleen normal.
-jaundice with mild GERD
-increased LFT's and lipase
-puritis
-hepatic steatosis
-mild GBWT on Ct in May/hypopic GB on US on admission
-daily ETOH use
other medical problems:
-PAD with iliac stenosis follows with Dr. Conley
-cervical fusion
-HTN
-hyperlipidemia
-appe with partial cecectomy 05/2023
-hx prior tobacco abuse
-family hx mother with pancreatic CA and brother with intestinal CA
10/28/2023, MRI with MRCP showing distended gallbladder measuring 11 cm with normal gallbladder wall thickness. Subtle wall nodularity with no inflammatory changes. Marked distention of the intrahepatic ducts and extrahepatic ducts down to the
level of the ampulla. No choledocholithiasis. No stricture identified. No pancreatic mass seen. Mild prominent main pancreatic duct measuring 4 mm in the head. Otherwise pancreatic parenchyma is normal with no enhancement or mass.
10/29/2023 -reviewed with patient and with Dr. Bojorquez. Patient undergo EUS/ERCP tomorrow afternoon
-- Etiology of his symptoms I am still concerned of a malignant obstructive process in the setting of painless jaundice with double duct sign
-- Could be ampullary in origin, radiology mentioned biliary cyst however his CT scan in May 2023 with IV and oral contrast showed no abnormalities at that time
-- Patient is agreeable, n.p.o. after midnight
-
Total Time Spent with Patient (in minutes): 20
Subjective
Subjective
Date of Service: October 29, 2023
Rsos still denies any abdominal symptoms. He is eating well. Still has pruritus
Objective
Data Reviewed
Laboratory Data:
Laboratory Results
10/29/23 06:50
10/29/23 06:50
Laboratory Results
PT 13.4 Sec (11.4-14.6) 10/29/23 06:50
INR 1.04 10/29/23 06:50
APTT 26.4 Sec (23.4-35.0) 10/27/23 19:52
Magnesium 2.1 mg/dl (1.6-2.3) 10/28/23 07:17
Total Bilirubin 7.9 mg/dl (0.2-1.3) H D 10/29/23 06:50
AST 452 U/L (17-59) H 10/29/23 06:50
ALT 635 U/L (0-50) H* 10/29/23 06:50
Alkaline Phosphatase 789 U/L (38-126) H 10/29/23 06:50
Lipase > 4000 U/L (23-300) H* 10/27/23 17:54
Vital Signs and I&O:
Vital Signs
Temp Pulse Resp BP Pulse Ox
98 F 63 18 168/65 96
10/29/23 07:00 10/29/23 07:00 10/29/23 07:00 10/29/23 07:00 10/29/23 08:00
I&O
10/28/23 10/29/23 10/30/23
06:59 06:59 06:59
Intake Total 1979
Balance 1979
Physical Exam
Physical Exam
HEENT: Other (Icteric)
Cardiology: Normal Sinus Rhythm
GI: Soft, Non Distended and Non Tender
Extremities: No Edema
Neuro: Non Focal
[2023-10-29 15:00] VITALS: BP 101/53
[2023-10-29 18:11] VITALS: BP 108/59
--- NOTE | 2023-10-29 18:15 | PTCARENOTE ---
Pts bp running on lower side 100s/50s, asymptomatic , no c/o dizziness, no abd pain or discomfort, other VSS HR 60-80s, afebrile. Md made aware, plan of care ongoing.
[2023-10-29 19:04] VITALS: BP 140/63
[2023-10-29] MEDS: BENADRYL 25 MG PO (20:18)
[2023-10-30] VITALS (12 sets, daily range): BP systolic 113–156; BP diastolic 59–74; BMI 22.4
--- NOTE | 2023-10-30 08:34 | W.PN.HOSP.TC ---
Today's Communication/Plan
-
Plan for ERCP. Trend LFTs.
Assessment / Plan
Assessment / Plan
Physical exam:
Gen: NAD, AAOx3.
Eyes: EOMI, PERRLA, scleral icterus.
Neck: supple.
CV: remains RRR, +S1/S2, no m/r/g.
Resp: remains CTAB, no rales, wheezes, or rhonchi.
Abd: remains +BS, soft, NT, ND
Skin: No rashes.
Neuro: CN 2-12 intact, non-focal.
Psych: Normal mood and affect.
A/P:
Increased LFTs with painless jaundice/Doubt pancreatitis given lack of abdominal pain:
-Continue IV fluids
-Continue n.p.o.
-Trend LFTs
-MRI abd/MRCP above, notable for intrahepatic and extrahepatic biliary ductal dilatation without choledocholithiasis or stricture, no pancreatic head mass.
-Plan for EUS/ERCP today
-Discussed with at bedside today
Other problems:
ASCVD/PAD: cont ASA, hold statin.
Essential hypertension: cont Norvasc/ACEi
Mild Hyperkalemia, resolved
Alcohol abuse Disorder: daily 2-3 drinks/day. MSAS/thiamine/folate.
Mild hyponatremia
FULL/Heparin
Anticipated Discharge: 24 - 48 hours
Subjective/Interval History
-
Date of Service: October 30, 2023
Patient denies abdominal pain nausea or vomiting. No chest pain or shortness of breath. Afebrile
Objective Data
-
Vital Signs:
Vital Signs
Temp Pulse Resp BP Pulse Ox
97.8 F 66 19 119/66 95
10/30/23 07:30 10/30/23 07:30 10/30/23 07:30 10/30/23 07:30 02/26/24 07:30
I&O
10/29/23 10/30/23 10/31/23
06:59 06:59 06:59
Intake Total 1859 / 1119
Balance 1859 / 1119
Review of Systems
-
All other systems: Reviewed and negative
[2023-10-30] MEDS: LOTREL 10 MG/20 MG 1 CAPSULE PO (09:23)
[2023-10-30] MEDS: LR 1000 IV ×2 (09:23→23:17)
[2023-10-30] MEDS: FOLVITE 1 MG PO (09:24)
[2023-10-30] MEDS: ASPIR LOW (ENTERIC COATED) 81 MG PO (09:24)
[2023-10-30] MEDS: HEPARIN 5000 UNITS SC ×2 (09:24→20:13)
[2023-10-30] MEDS: THIAMINE INJECTION 200 MG IV ×2 (09:24→20:16)
[2023-10-30] MEDS: PROTONIX IV 40 MG IV (09:27)
[2023-10-30] MEDS: NSS (PRESERVATIVE FREE) 10 ML IV (09:28)
[2023-10-30 09:43] LABS: Lipase > 4000 U/L (23-300)
[2023-10-30 10:10] LABS: % Basophils 1.1 % (0-2); % Immature Granulocytes 1.4 % (0-0.5); % Lymphocytes 25.8 % (20.5-51.1); % Monocytes 10.2 % (1.7-9.3); % Neutrophils 58.5 % (42.2-75.2); Absolute Basophils 0.1 10^3/uL (0-0.2); Absolute Eosinophils 0.2 10^3/uL (0-0.7); Absolute Immature Granulocytes 0.1 10^3/uL (0-0.05); Absolute Lymphocytes 1.9 10^3/uL (1.2-3.4); Absolute Monocytes 0.8 10^3/uL (0.1-0.6); Absolute Neutrophils 4.3 10^3/uL (1.4-6.5); Hematocrit 35.6 % (39.0-52.0); Mean Corp Hgb Conc. 36.5 g/dL (33.0-37.0); Mean Corpuscular Hgb 32.3 pg (27.0-31.0); Mean Corpuscular Volume 88.3 fL (80.0-94.0); Mean Platelet Volume 10.4 fL (7.4-10.4); Nucleated Red Blood Cells % 0 % (-); Platelet Count 369 10^3/uL (130-400); Red Blood Cell Count 4.03 10^6/uL (4.70-6.10); Red Cell Dist. Width 15.6 % (11.5-14.5); White Blood Cell Count 7.3 10^3/uL (4.8-10.8)
[2023-10-30 10:20] LABS: INR 0.95; PT 12.4 Sec (11.4-14.6)
[2023-10-30 11:36] LABS: ALT (SGPT) 539 U/L (0-50); AST (SGOT) 330 U/L (17-59); Albumin 3.8 g/dl (3.5-5.0); Alkaline Phosphatase 694 U/L (38-126); Blood Urea Nitrogen 20 mg/dl (9-20); Calcium 9.9 mg/dl (8.4-10.2); Carbon Dioxide 21 mmol/L (22-30); Chloride 102 mmol/L (98-107); Estimated Creatinine Clearance 113 ml/min; Glucose 122 mg/dl (70-99); Potassium 4.5 mmol/L (3.5-5.1); Sodium 132 mmol/L (135-145); Total Bilirubin 8.6 mg/dl (0.2-1.3); eGFR > 60.00
--- NOTE | 2023-10-30 17:15 | PTCARENOTE ---
Pt returned from PACU, Pt c/o some lightheadedness, feeling tired, pt was able to ambulate to bed with assistance. Pt VSS 93% on RA. Pt has no c/o pain at this time. Pt instructed to ring for assistance, verbalized understanding, Pt reoriented to
room, call cronin within reach, family at bedside, plan of care ongoing.
[2023-10-30 19:05] LABS: Hepatitis B Surface Antigen Negative (Negative)
[2023-10-30 19:22] LABS: Hepatitis B Surface Antibody Negative; Hepatitis C Antibody Negative (Negative)
[2023-10-30 19:26] LABS: Hepatitis A IgM Antibody Negative (Negative); Hepatitis B Core Ab, IgM Negative (Negative)
[2023-10-31 03:38] VITALS: BP 138/84
[2023-10-31 06:00] VITALS: BMI 22.5
[2023-10-31 07:35] VITALS: BP 149/67
[2023-10-31 07:53] LABS: % Basophils 0.6 % (0-2); % Eosinophils 2.7 % (0-6); % Immature Granulocytes 1.2 % (0-0.5); % Lymphocytes 26.4 % (20.5-51.1); % Monocytes 9.3 % (1.7-9.3); % Neutrophils 59.8 % (42.2-75.2); Absolute Basophils 0.1 10^3/uL (0-0.2); Absolute Eosinophils 0.2 10^3/uL (0-0.7); Absolute Immature Granulocytes 0.1 10^3/uL (0-0.05); Absolute Monocytes 0.7 10^3/uL (0.1-0.6); Absolute Neutrophils 4.6 10^3/uL (1.4-6.5); Hematocrit 32.4 % (39.0-52.0); Hemoglobin 11.9 g/dL (13.0-18.0); Mean Corp Hgb Conc. 36.7 g/dL (33.0-37.0); Mean Corpuscular Hgb 32.4 pg (27.0-31.0); Mean Corpuscular Volume 88.3 fL (80.0-94.0); Mean Platelet Volume 10.7 fL (7.4-10.4); Nucleated Red Blood Cells % 0 % (-); Platelet Count 349 10^3/uL (130-400); Red Blood Cell Count 3.67 10^6/uL (4.70-6.10); Red Cell Dist. Width 15.2 % (11.5-14.5); White Blood Cell Count 7.7 10^3/uL (4.8-10.8)
[2023-10-31 08:02] LABS: ALT (SGPT) 447 U/L (0-50); AST (SGOT) 203 U/L (17-59); Albumin 3.6 g/dl (3.5-5.0); Alkaline Phosphatase 686 U/L (38-126); Blood Urea Nitrogen 13 mg/dl (9-20); Carbon Dioxide 25 mmol/L (22-30); Chloride 101 mmol/L (98-107); Estimated Creatinine Clearance 114 ml/min; Glucose 111 mg/dl (70-99); Potassium 4.3 mmol/L (3.5-5.1); Sodium 132 mmol/L (135-145); Total Bilirubin 4.4 mg/dl (0.2-1.3); Total Protein 6.3 g/dl (6.3-8.2); eGFR > 60.00
--- NOTE | 2023-10-31 08:16 | W.PN.HOSP.TC ---
Today's Communication/Plan
-
Continue current management. Discharge planning today
Assessment / Plan
Assessment / Plan
Physical exam:
Gen: NAD, AAOx3.
Eyes: EOMI, PERRLA, scleral icterus.
Neck: supple.
CV: remains RRR, +S1/S2, no m/r/g.
Resp: remains CTAB, no rales, wheezes, or rhonchi.
Abd: remains +BS, soft, NT, ND
Skin: No rashes.
Neuro: CN 2-12 intact, non-focal.
Psych: Normal mood and affect.
A/P:
Increased LFTs with painless jaundice/Doubt pancreatitis given lack of abdominal pain:
-Stop IV fluids
-Start diet today and if tolerates can go home
-Trend LFTs as outpatient--> currently trending down
-MRI abd/MRCP above, notable for intrahepatic and extrahepatic biliary ductal dilatation without choledocholithiasis or stricture, no pancreatic head mass.
-Status post EUS/ERCP yesterday
-Discussed with at bedside yesterday
-If after results of biopsy positive for malignancy that he will need an oncology consultation as outpatient.
-See ERCP results below
ERCP:
Impression:� � � � � � - The major papilla appeared congested.
�� � � � � � � � � � � - The major papilla appeared to be bulging.
�� � � � � � � � � � � - The major papilla appeared to be ulcerated.
�� � � � � � � � � � � - The major papilla appeared to have a likely mass.
�� � � � � � � � � � � - A single severe biliary stricture was found in the
�� � � � � � � � � � � lower third of the main bile duct at the level of
�� � � � � � � � � � � ampulla.
�� � � � � � � � � � � - The left main hepatic duct, right main hepatic duct,
�� � � � � � � � � � � right intrahepatic branches, left intrahepatic
�� � � � � � � � � � � branches and common bile duct were moderately dilated,
�� � � � � � � � � � � acquired.
�� � � � � � � � � � � - Biopsy was performed ampulla.
�� � � � � � � � � � � - A biliary sphincterotomy was performed.
�� � � � � � � � � � � - Major papilla was successfully dilated.
�� � � � � � � � � � � - One plastic stent was placed into the common bile
�� � � � � � � � � � � duct.
Other problems:
ASCVD/PAD: cont ASA, hold statin.
Essential hypertension: cont Norvasc/ACEi
Mild Hyperkalemia, resolved
Alcohol abuse Disorder: daily 2-3 drinks/day. MSAS/thiamine/folate.
Mild hyponatremia
FULL/Heparin
Anticipated Discharge: Today
Subjective/Interval History
-
Date of Service: October 31, 2023
Patient denies abdominal pain nausea vomiting. Tolerating diet.
Objective Data
-
Labs:
Laboratory Results
10/31/23
07:15
WBC 7.7
Hgb 11.9 L
Hct 32.4 L
Plt Count 349
PT 13.0
INR 1.00
Sodium 132 L
Potassium 4.3
Chloride 101
Carbon Dioxide 25
BUN 13
Creatinine 0.5 L
Glucose 111 H
Calcium 9.0
Total Bilirubin 4.4 H
AST 203 H
ALT 447 H
Alkaline Phosphatase 686 H
Vital Signs:
Vital Signs
Temp Pulse Resp BP Pulse Ox
98.1 F 66 18 138/84 97
10/31/23 03:38 10/31/23 03:38 10/31/23 03:38 10/31/23 03:38 10/31/23 03:38
I&O
10/30/23 10/31/23 11/01/23
06:59 06:59 06:59
Intake Total 1120 / 1120 530 / 530
Balance 1120 / 1120 530 / 530
Review of Systems
-
All other systems: Reviewed and negative
--- NOTE | 2023-10-31 08:31 | W.PN.GI.CBS2 ---
Today's Communication / Plan
-
s/p EUS and ERCP with bx and stent placement with concern for ampullary lesion with papilla dilation
LFT's improving repeat lipase pending
tolerating clears no pain on exam
advance to regular diet
await biopsy likely will need oncology evaluation pending results
slip left for repeat LFT's in 1-2 weeks
discussed to return to hospital for increased abd pain, fever, chills, or jaundice
if tolerating diet stable for discharge remains afebrile with improved LFT's
Assessment / Plan
-
Pt is a 72yo with hx cervical spinal fusion, HTN, hyperlipidemia, PAD(no prior intervention), appe with partial cecectomy and preservation of IC valve and TI in 05/2023 now presents with onset of itching, jaundice, indigestion and abnormal labs. Pt
was given Prednisone with minimal improvement. On admission patient was noted with bili 5.7, d bili 4.5, AST 392, ALT 592, alk phos 825 and lipase >4000. US on admission with noted Hydropic gallbladder. Trace sludge. No gallstones. No sonographic
evidence of acute cholecystitis.Abnormal sonographic appearance of the liver, as described, suggesting hepatocellular inflammatory changes, such as hepatitis. Clinical correlation recommended.Mild intrahepatic ductal dilatation. Dilated common bile
duct.Subtle pancreatic parenchymal heterogeneity which could reflect colonic or acute inflammatory changes. In addition, there is mild distention of the main pancreatic duct. I also reviewed CT from May 2023 with acute appendicitis, hepatic
steatosis, enlarged prostates, iliac stenosis , mild GBWT without fluid, no ductal dilation, pancreas and spleen normal.
10/28/2023, MRI with MRCP showing distended gallbladder measuring 11 cm with normal gallbladder wall thickness. Subtle wall nodularity with no inflammatory changes. Marked distention of the intrahepatic ducts and extrahepatic ducts down to the
level of the ampulla. No choledocholithiasis. No stricture identified. No pancreatic mass seen. Mild prominent main pancreatic duct measuring 4 mm in the head. Otherwise pancreatic parenchyma is normal with no enhancement or mass.
10/30 -EUS no pathology in pancreas, with dilation CBD up to 15 mm, sludge in CBD, possible mass likely lesion in ampulla, no pathology in liver
10/30 ERCP --papilla congested, bulging, ulcerated likely mass, severe biliary stricture dilated hepatic ducts and CBD, s/p biopsy, papilla dilated, stent placed
-painless jaundice with mild GERD with elevated LFT's and lipase -- EUS concerning for ampullar lesion, s/p ERCP with stent and biopsy
-puritis
-hepatic steatosis
-mild GBWT on Ct in May/hypopic GB on US on admission
-daily ETOH use
other medical problems:
-PAD with iliac stenosis follows with Dr. Conley
-cervical fusion
-HTN
-hyperlipidemia
-appe with partial cecectomy 05/2023
-hx prior tobacco abuse
-family hx mother with pancreatic CA and brother with intestinal CA
PLAN:
s/p EUS and ERCP with bx and stent placement with concern for ampullary lesion with papilla dilation
LFT's improving repeat lipase pending
tolerating clears no pain on exam
advance to regular diet
await biopsy likely will need oncology evaluation pending results
slip left for repeat LFT's in 1-2 weeks
discussed to return to hospital for increased abd pain, fever, chills, or jaundice
if tolerating diet stable for discharge remains afebrile with improved LFT's
-
Subjective
Subjective
Date of Service: October 31, 2023
Pt feeling well no abdominal pain, no fever, LFT's improving
Objective
Data Reviewed
Laboratory Data:
Laboratory Results
10/31/23 07:15
10/31/23 07:15
Laboratory Results
PT 13.0 Sec (11.4-14.6) 10/31/23 07:15
INR 1.00 10/31/23 07:15
APTT 26.4 Sec (23.4-35.0) 10/27/23 19:52
Magnesium 2.1 mg/dl (1.6-2.3) 10/28/23 07:17
Total Bilirubin 4.4 mg/dl (0.2-1.3) H 10/31/23 07:15
AST 203 U/L (17-59) H 10/31/23 07:15
ALT 447 U/L (0-50) H 10/31/23 07:15
Alkaline Phosphatase 686 U/L (38-126) H 10/31/23 07:15
Lipase Cancelled 10/30/23 08:35
Vital Signs and I&O:
Vital Signs
Temp Pulse Resp BP Pulse Ox
98.1 F 66 18 138/84 97
10/31/23 03:38 10/31/23 03:38 10/31/23 03:38 10/31/23 03:38 10/31/23 03:38
I&O
10/30/23 10/31/23 11/01/23
06:59 06:59 06:59
Intake Total 1120 / 1120 530 / 530
Balance 1120 / 1120 530 / 530
Physical Exam
Physical Exam
HEENT: Other (minimal jaundice )
Cardiology: Normal Sinus Rhythm
Pulmonary: Clear
GI: Soft, Non Distended and Non Tender
Extremities: No Edema
Neuro: Non Focal
[2023-10-31] MEDS: LOTREL 10 MG/20 MG 1 CAPSULE PO (09:29)
[2023-10-31] MEDS: LR 1000 IV (09:29)
[2023-10-31] MEDS: VITAMIN B1 100 MG PO (09:29)
[2023-10-31 09:30] LABS: Lipase 1833 U/L (23-300)
[2023-10-31] MEDS: PROTONIX IV 40 MG IV (09:30)
[2023-10-31] MEDS: FOLVITE 1 MG PO (09:30)
[2023-10-31] MEDS: ASPIR LOW (ENTERIC COATED) 81 MG PO (09:30)
[2023-10-31] MEDS: NSS (PRESERVATIVE FREE) 10 ML IV (09:30)
[2023-10-31] MEDS: HEPARIN 5000 UNITS SC (09:31)
[2023-10-31 11:35] VITALS: BP 109/60
--- NOTE | 2023-10-31 14:17 | W.DCSUMMARY ---
Discharge Summary
Discharge Data
Date of Admission: 10/27/23
Date of Discharge: 10/31/23
-
Pending Results: Yes
Additional Pending Results:
Intra biliary biopsy of major papula.
Hospital Course
Patient 72-year-old male presented to the hospital with increased LFTs and jaundice. GI was consulted. Patient had an MRCP with intrahepatic and extrahepatic biliary ductal dilatation and no definitive pancreatic mass. Patient underwent ERCP and
there was severe stricture in the distal part of the common bile duct and also major papula was dilated and biopsy was taken with suspicion of a mass. He had a biliary sphincterotomy with a stent in the common bile duct. He was able to tolerate
food after procedure and he has been pain-free since admission. LFTs are trending down. Lipase was increased but not consistent with pancreatitis. GI recommended follow-up LFTs and follow-up biopsy results as outpatient and they cleared him for
discharge. He will be discharged in relatively stable condition today.
Discharge duration: 35 minutes
Discharge Plan
-
Patient Disposition: Home (Routine Discharge)
Discharge Diagnosis/Procedures: Increased liver function test. Intra-biliary mass pending biopsy.
Diet: Low Cholesterol
Activity: As tolerated
Driving Restrictions: As prior to admission
Blood Work: repeat LFT's in 1-2 weeks see slip
Others Tests: return to hospital for fever, chills, abdominal pain or increased yellow tinged to skin
Referrals:
Lester Clarke MD [Family Provider] - in less than 1 week
Jose Bojorquez MD [Active] - (call next week for biopsy results )
Prescriptions:
Continued
ascorbic acid (vitamin C) [Vitamin C] 1,000 mg Tablet
1,000 mg PO DAILY Qty: 0
vitamin B complex Tablet Extended Release
1 tab PO DAILY Qty: 0
aspirin 81 mg Tablet,Delayed Release (Dr/Ec)
81 mg PO DAILY
amlodipine-benazepril 10-20 mg capsule
1 cap PO DAILY
coenzyme Q10 [Co Q-10] 200 mg Capsule
200 mg PO DAILY Qty: 0
cholecalciferol (vitamin D3) [Vitamin D3] 125 mcg (5,000 unit) Tablet
125 mcg PO DAILY Qty: 0
multivitamin Tablet
1 tab PO DAILY
prednisone 10 mg Tablet
10 mg PO .TAPER
Rx Instructions:
Taper Directions: 5 tabs daily x 2 days, 4 tabs daily x 2 days, 3 tabs daily x 2 days, 2 tabs daily x 2 days, 1 tab daily x 2 days
zinc acetate 50 mg (zinc) Capsule
50 mg PO DAILY
Held
atorvastatin 20 mg tablet
20 mg PO DAILY
Hold Instructions: Resume on 11/20/23.
Discharge Orders:
Discharge Patient (As Directed); Ordered 10/31/23
Ordered By: Chung Quinones
Discharge Date and Time
Discharge Date/Time: 10/31/23 15:43
[2023-10-31 15:54] LABS: HIV Combo Negative (Negative)
--- NOTE | 2023-10-31 16:12 | CM ---
CM following re: d/c planning
Chart reviewed
Pt is medically stable for d/c
Pt has no d/c needs
Previous CM mentioned SA counseling & he declined
Pt also declined VN needs stating that his daughter is an RN
IMM was reviewed and copy provided
PLAN; d/c to home no needs
== END 2023-10-31 15:43 | disposition home or self-care (01) | DRG 435 ==
LOC: 4 EAST ACU 21:29
PROVIDERS: Emergency Medicine; Internal Medicine Gastroenterology; Nurse Practitioner Adult Health; Physician Assistant; ADMITTING PHYSICIAN Hospitalist; ATTENDING PHYSICIAN Hospitalist; CONSULT PHYSICIAN Internal Medicine; EMERGENCY PHYSICIAN Emergency Medicine; FAMILY PHYSICIAN Family Medicine
PROC: 0F798DZ Dilation of Common Bile Duct with Intraluminal Device, Via Natural or Artificial Opening Endoscopic (ICD-10-PCS; 2023-10-30)
PROC: 0FC98ZZ Extirpation of Matter from Common Bile Duct, Via Natural or Artificial Opening Endoscopic (ICD-10-PCS; 2023-10-30)
PROC: BF40ZZZ Ultrasonography of Bile Ducts (ICD-10-PCS; 2023-10-30)
PROC: 0FBC8ZX Excision of Ampulla of Vater, Via Natural or Artificial Opening Endoscopic, Diagnostic (ICD-10-PCS; 2023-10-30)
DX: C24.1 Malignant neoplasm of ampulla of Vater (principal); K83.1 Obstruction of bile duct; E87.1 Hypo-osmolality and hyponatremia; R17 Unspecified jaundice; I10 Essential (primary) hypertension; F10.10 Alcohol abuse, uncomplicated; E87.5 Hyperkalemia; K21.9 Gastro-esophageal reflux disease without esophagitis; Z87.891 Personal history of nicotine dependence; Z80.0 Family history of malignant neoplasm of digestive organs; Z80.8 Family history of malignant neoplasm of other organs or systems
CPT/HCPCS: 88305; 74183; 74330; 76000; 76700; 80053; 81003; 81015; 82248; 83605; 83690; 83735; 84443; 85025; 85027; 85610; 85730; 86705; 86706; 86709; 86803; 87040; 87340; 87389; 88342; 88360; 93005; 99285; A9575; C1726; C1769; C2617

== ENCOUNTER → 2023-11-14 13:15 | Outpatient (REF) | payer OTHER, SELFPAY | LOC: HWRAD 13:15 | PROVIDERS: ATTENDING PHYSICIAN Internal Medicine Hematology & Oncology; FAMILY PHYSICIAN Family Medicine | DX: C24.0 Malignant neoplasm of extrahepatic bile duct (principal) | CPT/HCPCS: 71270; 74178; Q9967 ==

== ENCOUNTER → 2023-11-22 10:37 | Outpatient (REF) | payer OTHER, SELFPAY | LOC: DHCBC/DCA 10:37 | PROVIDERS: ATTENDING PHYSICIAN Internal Medicine Cardiovascular Disease; FAMILY PHYSICIAN Family Medicine | DX: R06.09 Other forms of dyspnea (principal); I73.9 Peripheral vascular disease, unspecified | CPT/HCPCS: 78452; 93017; A9500; J2785 ==

== ENCOUNTER 2024-08-19 23:58 | Inpatient (IN) | payer OTHER, SELFPAY ==
[2024-08-19 17:26] VITALS: BMI 22.4
[2024-08-19 17:51] VITALS: BP 128/52
--- NOTE | 2024-08-19 18:00 | ED.GENMED ---
ED Provider Triage
<Elmira Morin VISUAL EFFECTS ARTIST - Last Filed: 08/19/24 18:06>
-
Patient seen by provider in Triage?: Seen in Triage
Attestation: A medical screening examination has been initiated by a qualified medical provider. Based on the assessment performed at this time, it has been determined that an emergent medical condition may exist and the patient has been informed
that further medical evaluation and possible additional diagnostic testing may be needed.
HPI: 73-year-old male w h/o appendectomy, is here for right lower quadrant pain that woke him up around midnight last night. Pain has been constant, hurts worse when he twists his abdomen wall or if he presses on it. Pain is 3/10 if he is still,
it goes up to 8 if he presses on it or has certain movements. Denies N/V/D/C. No recollection of overuse or injury
Receiving chemotherapy at [facility] post Whipple surgery on 12/15/2023. Last dose was 3 weeks ago.
Moving bowels and urinating normally
Patient tested positive for COVID on 08/16 and started on Paxlovid,, took twice daily on Monday and twice daily on Monday.
GENERAL: Alert , in no apparent distress
EYE: No visual abnormalities.
NECK: Trachea midline
ENT: No visible abnormalities.
LUNGS: No acute respiratory distress
NEUROLOGICAL: Alert and oriented
SKIN: Skin intact. No visible changes.
MUSCULOSKELETAL: Moving extremities normally
PSYCH: Normal and appropriate interaction.
This is a medical evaluation conducted in person to initiate diagnostic evaluation and provide initial therapeutics. Please see further documentation by the treating clinician.
History of Present Illness
<Elmira Morin VISUAL EFFECTS ARTIST - Last Filed: 08/19/24 18:06>
General
Chief Complaint: Abdominal Pain
Time Seen by Provider: 08/19/24 20:09
<Nish Rosenberg DO, Resident - Last Filed: 08/19/24 21:12>
History of Present Illness
History of Present Illness:
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
acute right lower quadrant abdominal pain. Patient states his abdominal pain started last night, he rates it 8 out of 10 and sharp to palpation, 2 out of 10 at rest. His pain is localized to the right lower quadrant lateral to the umbilicus.
Patient also received a appendectomy last year in addition to a Whipple procedure. He is currently receiving chemotherapy for bile duct cancer recurrence.
Past History
<Elmira Morin, VISUAL EFFECTS ARTIST - Last Filed: 08/19/24 18:06>
Past History
ED Past Medical History: None
Social History
Living: with family
<Nish Rosenberg DO, Resident - Last Filed: 08/19/24 21:12>
Past History
ED Past Medical History: Cancer and Hypercholesterolemia
ED Past Surgical History: Appendectomy and Other (Whipple procedure)
Review of Systems
<Nish Rosenberg DO, Resident - Last Filed: 08/19/24 21:12>
Review of Systems
Constitutional: Reports no symptoms
Respiratory: Reports no symptoms
Cardiac: Reports no symptoms
ABD/GI: Reports abdominal pain; Denies nausea, vomiting or diarrhea
Musculoskeletal: Reports no symptoms
Neurological: Reports no symptoms
Phy Exam
<Nish Rosenberg DO, Resident - Last Filed: 08/19/24 21:12>
General Physical Exam
General Presentation: no apparent distress
General Skin: warm and dry
General Mental: alert
Cardiovascular Exam
Cardiovascular Exam: regular rate/rhythm and no edema
Pulmonary Exam
Pulmonary Exam: lungs clear
Gastrointestinal Exam
Gastrointestinal Exam: normal bowel sounds, soft, non distended, tender and other (Tender right lower quadrant, lateral to umbilicus. No rebound or guarding present on exam.)
Abdominal Scars: vertical midline
Psychiatric Exam
Psychiatric Exam: normal mood/affect
Course
<Elmira Morin VISUAL EFFECTS ARTIST - Last Filed: 08/19/24 18:06>
Orders/Labs/Results
Orders:
Orders
08/19/24 18:09
Complete Blood Count/With Diff Urgent
Comprehensive Metabolic Panel Urgent
Lipase Urgent
08/19/24 20:45
CT Abd/pelvis W Iv Cont Urgent
Comment:
Reason For Exam: rlq pain,
08/19/24 21:10
Morphine Sulfate 4 mg IV NOW STA
Ondansetron Injectable [Zofran] 4 mg IV NOW STA
08/19/24 23:09
Morphine Sulfate 4 mg IV NOW STA
Ondansetron Injectable [Zofran] 4 mg IV NOW STA
Abnormal Lab Results
08/19/24
18:09
RBC 3.63 L 10^6/uL
(4.70-6.10)
Hgb 11.3 L g/dL
(13.0-18.0)
Hct 33.8 L %
(39.0-52.0)
MCH 31.1 H pg
(27.0-31.0)
RDW 15.6 H %
(11.5-14.5)
Sodium 134 L mmol/L
(135-145)
Creatinine 0.5 L mg/dL
(0.7-1.3)
Glucose 108 H mg/dl
(70-99)
Total Bilirubin 0.1 L mg/dl
(0.2-1.3)
Alkaline Phosphatase 186 H U/L
(38-126)
08/19/24 18:09
08/19/24 18:09
Vital Signs
Initial and Last Documented VS:
Initial Vital Signs
Temp Pulse Resp BP Pulse Ox
98.3 F 69 18 128/52 99
08/19/24 17:51 08/19/24 17:51 08/19/24 17:51 08/19/24 17:51 08/19/24 17:51
Last Documented Vital Signs
Temp Pulse Resp BP Pulse Ox
98.3 F 72 18 130/68 98
08/19/24 19:26 08/19/24 21:32 08/19/24 21:32 08/19/24 22:11 08/19/24 22:11
<Nish Rosenberg DO, Resident - Last Filed: 08/19/24 21:12>
Orders/Labs/Results
Orders:
Orders
08/19/24 18:09
Complete Blood Count/With Diff Urgent
Comprehensive Metabolic Panel Urgent
Lipase Urgent
08/19/24 20:45
CT Abd/pelvis W Iv Cont Urgent
Comment:
Reason For Exam: rlq pain,
08/19/24 21:10
Morphine Sulfate 4 mg IV NOW STA
Ondansetron Injectable [Zofran] 4 mg IV NOW STA
08/19/24 23:09
Morphine Sulfate 4 mg IV NOW STA
Ondansetron Injectable [Zofran] 4 mg IV NOW STA
Abnormal Lab Results
08/19/24
18:09
RBC 3.63 L 10^6/uL
(4.70-6.10)
Hgb 11.3 L g/dL
(13.0-18.0)
Hct 33.8 L %
(39.0-52.0)
MCH 31.1 H pg
(27.0-31.0)
RDW 15.6 H %
(11.5-14.5)
Sodium 134 L mmol/L
(135-145)
Creatinine 0.5 L mg/dL
(0.7-1.3)
Glucose 108 H mg/dl
(70-99)
Total Bilirubin 0.1 L mg/dl
(0.2-1.3)
Alkaline Phosphatase 186 H U/L
(38-126)
08/19/24 18:09
08/19/24 18:09
Vital Signs
Initial and Last Documented VS:
Initial Vital Signs
Temp Pulse Resp BP Pulse Ox
98.3 F 69 18 128/52 99
08/19/24 17:51 08/19/24 17:51 08/19/24 17:51 08/19/24 17:51 08/19/24 17:51
Last Documented Vital Signs
Temp Pulse Resp BP Pulse Ox
98.3 F 72 18 130/68 98
08/19/24 19:26 08/19/24 21:32 08/19/24 21:32 08/19/24 22:11 08/19/24 22:11
<Dangelo Hayes, DO - Last Filed: 08/19/24 23:11>
Orders/Labs/Results
Orders:
Orders
08/19/24 18:09
Complete Blood Count/With Diff Urgent
Comprehensive Metabolic Panel Urgent
Lipase Urgent
08/19/24 20:45
CT Abd/pelvis W Iv Cont Urgent
Comment:
Reason For Exam: rlq pain,
08/19/24 21:10
Morphine Sulfate 4 mg IV NOW STA
Ondansetron Injectable [Zofran] 4 mg IV NOW STA
08/19/24 23:09
Morphine Sulfate 4 mg IV NOW STA
Ondansetron Injectable [Zofran] 4 mg IV NOW STA
Abnormal Lab Results
08/19/24
18:09
RBC 3.63 L 10^6/uL
(4.70-6.10)
Hgb 11.3 L g/dL
(13.0-18.0)
Hct 33.8 L %
(39.0-52.0)
MCH 31.1 H pg
(27.0-31.0)
RDW 15.6 H %
(11.5-14.5)
Sodium 134 L mmol/L
(135-145)
Creatinine 0.5 L mg/dL
(0.7-1.3)
Glucose 108 H mg/dl
(70-99)
Total Bilirubin 0.1 L mg/dl
(0.2-1.3)
Alkaline Phosphatase 186 H U/L
(38-126)
08/19/24 18:09
08/19/24 18:09
Vital Signs
Initial and Last Documented VS:
Initial Vital Signs
Temp Pulse Resp BP Pulse Ox
98.3 F 69 18 128/52 99
08/19/24 17:51 08/19/24 17:51 08/19/24 17:51 08/19/24 17:51 08/19/24 17:51
Last Documented Vital Signs
Temp Pulse Resp BP Pulse Ox
98.3 F 72 18 130/68 98
08/19/24 19:26 08/19/24 21:32 08/19/24 21:32 08/19/24 22:11 08/19/24 22:11
<Nish Rosenberg DO, Resident - Last Filed: 08/19/24 21:12>
MDM/Problems Addressed
Differential Diagnosis Includes:
Small bowel obstruction versus metastatic disease versus diverticulitis versus intestinal ischemia
MDM/Problems Addressed:
#Small bowel obstruction versus metastatic disease
Patient has an extensive surgical history including Whipple procedure for bile duct cancer diagnosis and appendectomy approximately 1 year ago. He is currently receiving chemotherapy
He also has a recent COVID-19 infection, treated with Paxlovid, however Paxlovid was discontinued by medical oncology
Suspicion for small bowel obstruction versus diverticulitis versus potential metastatic disease
Patient denies nausea and vomiting, abdomen nondistended but painful to palpation lateral to umbilicus right lower quadrant
Will evaluate patient with CT abdomen pelvis with IV contrast
Symptomatic management with IV morphine and IV Zofran
Chronic conditions affecting care: Previous abdomnial surgery and Cancer
<Dangelo Hayes DO - Last Filed: 08/19/24 23:11>
*Critical Care Note
Total Time (30-74mins, 75-104mins- exclusive of procedures): Not Applicable
<Dangelo Hayes DO - Last Filed: 08/19/24 23:11>
Update Note
Update Note:
Update, prior colonoscopy report noted
[address] noted reviewed with patient, he has had no vomiting, normal bowel movements, does have some tenderness still with less then earlier, do not believe this is an obstruction could perhaps be metastatic disease, I did review this thought
process with the patient this point I believe will be prudent to admit him to the hospital IV fluids antiemetics serial abdominal exams
ED Attending Note
<Elmira Morin VISUAL EFFECTS ARTIST - Last Filed: 08/19/24 18:06>
-
Portions of this chart may have been created with voice recognition software.� Occasional wrong word or��sound alike� substitutions may have occurred due to the inherent limitations of voice recognition software.
<Dangelo Hayes DO - Last Filed: 08/19/24 23:11>
ED Attending Note
Patient seen and examined by attending physician: Yes
I performed a history and physical exam of patient and discussed management with resident, I reviewed resident's note and agree with documented findings and plan of care.: Yes
ED Attending Note:
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
frequency, has no trouble urinating, has had colonoscopies before unclear if he has had diverticular disease from the scopes, modestly tender here and exam will check labs, provide analgesia check CT scan
Discharge Plan
Departure
Patient Disposition: Admit
Date of Disposition: 08/19/24
Time of Disposition: 23:10
Admit to: Med/Surg
Presentation/result/management discussed w/ accepting MD/DO: Hospitalist
Patient with high blood pressure during this ER visit?: No
Condition: Fair
Covid-19: Not Applicable
Discharge Problem:
Status post Whipple, Abdominal pain
Prescriptions:
No Action
ascorbic acid (vitamin C) [Vitamin C] 1,000 mg Tablet
1,000 mg PO DAILY Qty: 0
vitamin B complex Tablet Extended Release
1 tab PO DAILY Qty: 0
atorvastatin 20 mg tablet
20 mg PO DAILY
aspirin 81 mg Tablet,Delayed Release (Dr/Ec)
81 mg PO DAILY
amlodipine-benazepril 10-20 mg capsule
1 cap PO DAILY
coenzyme Q10 [Co Q-10] 200 mg Capsule
200 mg PO DAILY Qty: 0
cholecalciferol (vitamin D3) [Vitamin D3] 125 mcg (5,000 unit) Tablet
125 mcg PO DAILY Qty: 0
multivitamin Tablet
1 tab PO DAILY
prednisone 10 mg Tablet
10 mg PO .TAPER
Rx Instructions:
Taper Directions: 5 tabs daily x 2 days, 4 tabs daily x 2 days, 3 tabs daily x 2 days, 2 tabs daily x 2 days, 1 tab daily x 2 days
zinc acetate 50 mg (zinc) Capsule
50 mg PO DAILY
Referrals:
UNKNOWN - PT DOES,NOT KNOW [Family Provider] -
Interventions
Interventions:
*Risk Screen - Suicide Last Done: 08/19/24 20:22
*General Assessment Last Done: 08/19/24 17:51
*Neglect/Abuse Screening Last Done: 08/19/24 20:22
ED- Fall Risk Assessment Last Done: 08/19/24 20:22
*ED COVID-19 Vaccine History Last Done: 08/19/24 22:15
UR-Kdfytq-Jkimkenaqt Assessment Last Done: 08/19/24 20:22
Discharge Date and Time
Print Language: LEBANESE
[2024-08-19 18:15] LABS: % Basophils 0.7 % (0-2); % Eosinophils 1.1 % (0-6); % Immature Granulocytes 0.4 % (0-0.5); % Monocytes 7.5 % (1.7-9.3); % Neutrophils 62.3 % (42.2-75.2); Absolute Basophils 0.1 10^3/uL (0-0.2); Absolute Eosinophils 0.1 10^3/uL (0-0.7); Absolute Lymphocytes 2.1 10^3/uL (1.2-3.4); Absolute Monocytes 0.6 10^3/uL (0.1-0.6); Absolute Neutrophils 4.6 10^3/uL (1.4-6.5); Hematocrit 33.8 % (39.0-52.0); Hemoglobin 11.3 g/dL (13.0-18.0); Mean Corp Hgb Conc. 33.4 g/dL (33.0-37.0); Mean Corpuscular Hgb 31.1 pg (27.0-31.0); Mean Corpuscular Volume 93.1 fL (80.0-94.0); Mean Platelet Volume 8.8 fL (7.4-10.4); Nucleated Red Blood Cells % 0 % (-); Platelet Count 237 10^3/uL (130-400); Red Blood Cell Count 3.63 10^6/uL (4.70-6.10); Red Cell Dist. Width 15.6 % (11.5-14.5); White Blood Cell Count 7.3 10^3/uL (4.8-10.8)
[2024-08-19 18:36] LABS: ALT (SGPT) 34 U/L (0-50); AST (SGOT) 32 U/L (17-59); Albumin 3.9 g/dl (3.5-5.0); Alkaline Phosphatase 186 U/L (38-126); Blood Urea Nitrogen 12 mg/dl (9-20); Calcium 8.5 mg/dl (8.4-10.2); Carbon Dioxide 28 mmol/L (22-30); Chloride 100 mmol/L (98-107); Glucose 108 mg/dl (70-99); Lipase 48 U/L (23-300); Potassium 4.9 mmol/L (3.5-5.1); Sodium 134 mmol/L (135-145); Total Bilirubin 0.1 mg/dl (0.2-1.3); Total Protein 6.3 g/dl (6.3-8.2); eGFR > 60.00
[2024-08-19 19:26] VITALS: BP 124/57
[2024-08-19] MEDS: ZOFRAN 4 MG IV ×2 (21:16→23:19)
[2024-08-19] MEDS: MORPHINE SULFATE 4 MG IV ×2 (21:16→23:20)
[2024-08-19 21:32] VITALS: BP 122/60
[2024-08-19 22:11] VITALS: BP 130/68
[2024-08-19 23:00] VITALS: BP 122/59
--- NOTE | 2024-08-19 23:12 | HPS.HSE ---
Family Physician
-
Family Physician: NOT KNOW UNKNOWN - PT DOES
Chief Complaint
-
Abdominal pain, current COVID
History of Present Illness
73-year-old male complaining of right lower quadrant pain that woke him up around midnight last night 08/18/2024. He reports normal daily bowel movements. He states last week he had frequent bowel movements formed. He complains of constant pain
increased with twisting his abdomen. He denies nausea, vomiting, diarrhea, chills, fever, chest pain, palpitations, shortness breath, cough, urinary symptoms. He had a PET scan approximately 7 weeks ago and was told he had new growth at the site
of the ampulla. He is receiving chemotherapy at [facility] post Whipple surgery on 12/15/2023. He states his chemotherapy was changed to a new regimen every Monday for 2 weeks at a time. His last chemo was on 07/29/2024 due to testing
positive for COVID on Thursday 08/16 where he states he felt overall worsening fatigue and was sneezing after his doctor appointment.. He reports his became sick first on 08/13 she did attend taoist on Monday and took her granddaughter out on
Monday but the granddaughter is not sick. The patient states he started taking Paxlovid on Monday twice daily, Monday twice daily to continue for a 5-day course.
He has past medical history status post [facility] 12/15/2023 for cholangiocarcinoma on current chemotherapy last dose 3 weeks ago end of July, history of ampullary lesion dilated CBD duct status post ERCP with stent and biopsy 10-30,
ASCVD/PAD, HTN PAD, cervical DDD, HTN former smoker smoked 50 pack years use quit smoking 2014, appendectomy with partial cecectomy 05/24/2023
Medical History
Past Medical History
Past Medical History: Reports Other
Additional Past Medical History:
PET scan approximately 7 weeks ago with reported new spread at ampulla site per patient chemotherapy was switched to every 2 weeks
Cholangiocarcinoma status post [facility] 12/15/2023 for cholangiocarcinoma on current chemotherapy last dose July 29 was due today 08/19/2024 held due to COVID-19 positive
COVID-19 + 08/16/2024 symptoms of increased fatigue and sneezing
history of ampullary lesion dilated CBD duct status post ERCP with stent and biopsy 10-30,
ASCVD/PAD
HTN
, cervical DDD,
former smoker
appendectomy with partial cecectomy 05/24/2023
Past Surgical History: Reports Other
Additional Past Surgical History:
Status post Whipple cholangiocarcinoma [facility] [place] 12/15/2023
CBD duct stent 10/30/2023 [facility]
C4-C5 fusion
Tonsillectomy adenoidectomy
Right knee arthroscopy
Appendectomy with partial cecectomy 05/24/2023
Social History
Tobacco: Former Smoker (Stopped 2019 smoked 53 years three-quarter pack per day)
Alcohol: Occasional
Drug: None
Personal:
Living: With Family ( Jo)
Employment: Retired
Family History
Family History: Not pertinent
Allergies / Home Medications
Allergies reflects when Allergies were last updated in [facility].
Home Medications with original date entered in [facility]
Allergy/Medication List:
Allergies
Allergy/AdvReac Type Severity Reaction Status Date / Time
bee pollen Allergy Anaphylaxis Verified 08/19/24 17:51
Home Medications
aspirin 81 mg tablet,delayed release 81 mg PO DAILY Blood Clot Prevention/Tx 05/28/23
cholecalciferol (vitamin D3) 125 mcg (5,000 unit) tablet (Vitamin D3) 125 mcg PO DAILY Supplement ##0 05/28/23
acetaminophen 500 mg tablet (Tylenol Extra Strength) 1,000 mg PO Q6HPRN PRN mild pain/fever 08/19/24
docusate sodium 100 mg capsule (Colace) 100 mg PO DAILYPRN PRN constipation 08/19/24
gabapentin 100 mg capsule 100 mg PO HS 08/19/24
loperamide 2 mg capsule 2 mg PO QIDPRN PRN diarrhea 08/19/24
magnesium oxide 400 mg PO BID 08/19/24
ondansetron 8 mg disintegrating tablet 8 mg PO Q8HPRN PRN nausea 08/19/24
prochlorperazine maleate 10 mg tablet (Compazine) 10 mg PO Q6HPRN PRN nausea 08/19/24
zinc sulfate 50 mg zinc (220 mg) tablet 50 mg PO DAILY 08/19/24
zolpidem 5 mg tablet 5 mg PO HSPRN PRN sleep 08/19/24
nirmatrelvir 150 mg-ritonavir 100 mg tablets in a dose pack (Paxlovid) 2 ea PO BID 08/20/24
Review of Systems
-
History Source: Patient
A 12 point ROS was completed and negative except as noted: Yes
Constitutional: Reports Fatigue; Denies Fever or Chills
EENT: Denies Sore Throat, Mouth Pain or Runny Nose
Respiratory: Denies Cough or Trouble Breathing
Cardiac: Denies Chest Pain, Diaphoresis, Palpitations or Syncope
Abdomen/GI: Reports Abdominal Pain (Right lower quadrant); Denies Nausea, Vomiting, Diarrhea, Constipated, Bloody Stools, Black Stools or Anorexia
: Denies Dysuria, Frequency, Flank Pain, Incontinence, Difficulty Voiding, Urgency or Bleeding
Musculoskeletal: Denies Joint Pain or Edema
Skin: Denies Itching or Rash
Neurological: Denies Dizzy, Headache or Weakness
Endocrine: Reports No Symptoms
Hematologic/Lymphatic: Reports No Symptoms
Psych: Reports Calm
Physical Exam
Vital Signs
Vital Signs
Temp Pulse Resp BP Pulse Ox
98.3 F 72 18 130/68 98
08/19/24 19:26 08/19/24 21:32 08/19/24 21:32 08/19/24 22:11 08/19/24 22:11
Physical Exam
General: Comfortable and Conversant; No Fever or Chills
HEENT: NormoCephalic, Anicteric, Moist mucous membranes, PERRLA, [place] Conjunctivae and No Ptosis
Respiratory: Clear; No Wheezes, Rales or Rhonchi
Cardiac: S1/S2, Regular Rhythm and Other (Port present right upper chest wall); No Murmur, Rub, Gallop or Peripheral Edema
GI: Soft, Non Distended, Normal Bowel Sounds and Tender (Right lower quadrant)
Genito-urinary: Deferred by me
Musculoskeletal: No Clubbing, No Cyanosis and No Edema
Skin: Warm and Dry; No Rash or Jaundice
Neuro: AO x 3, No Motor Deficits, Nonfocal/grossly intact, Cranial Nerves Intact and No Sensory Deficits; No Slurred Speech, Facial Droop, Tremors or Sedated
Psych: Calm
Laboratory Results
-
08/19/24 18:09
08/19/24 18:09
Laboratory Results
Total Bilirubin 0.1 mg/dl (0.2-1.3) L 08/19/24 18:09
AST 32 U/L (17-59) 08/19/24 18:09
ALT 34 U/L (0-50) 08/19/24 18:09
Alkaline Phosphatase 186 U/L (38-126) H 08/19/24 18:09
Lipase 48 U/L (23-300) 08/19/24 18:09
Data Reviewed
-
CT Scan: Report Reviewed by me
Lab Data: Labs Reviewed by me
Impression/Plan
-
Impression/plan:
Admit to MedSurg
#Abdominal pain secondary to Ileus/Constipation concern for possible metastatic disease given soft tissue mass near the root of the small bowel mesentery
-N.p.o. except meds
-IV Zofran as needed, pain control
-IV NSS
-Consult GI
-Monitor bowel movements
CT abdomen pelvis with IV contrast:
1. Peritoneal soft tissue stranding demonstrated to the right of the midline in the upper abdomen may represent loop of bowel less likely peritoneal carcinomatosis
2. Findings suggestive of mild small bowel dysmotility. Possible ileus
3. Constipation with mild to moderate colonic fecal burden. Minor sigmoid diverticulosis without acute diverticulitis.
4. Well-defined soft tissue mass near the root of the small bowel mesentery, and small mesenteric lymph node. Findings suspicious for possible metastatic disease.
#Stranding right of the midline upper abdomen concern for peritoneal carcinomatosis
-GI to follow
#Current COVID-19 infection Dx 08/16/2024 3 -days ago
98% on room air, symptoms started on Monday with fatigue and sneezing patient's is symptomatic and tested positive on 1209
-Patient started Paxlovid 2 days ago Monday and Monday of which she has taken 4 pills so far and has 3 days left
#Cholangiocarcinoma Dx December 2023 with new spread on PET scan 7 weeks ago patient believes site of ampulla however he is not aware of any area near the small bowel
#Status post Whipple [facility] [place] 12/15/2023 on current CHEMO last dose 3 weeks ago end of July
#History of ampullary lesion dilated CBD duct status post ERCP with stent and biopsy 10-30 found here at [facility]
-Consult GI
-Last chemo was 07/29/2024 he was due to get every 2 weeks but had to be held today 08/19/2024 due to current COVID infection
#HTN�benign
BP 130/68
#ASCVD/PAD
-Continue aspirin 81 mg daily
#Cervical DDD
-Continue gabapentin 100 mg at bedtime
# Former smoker
53 years three-quarter pack a day stopped 2018
#appendectomy with partial cecectomy 05/24/2023
DVT prophylaxis
Subcu Lovenox
DNR per patient
--- NOTE | 2024-08-19 23:43 | W.PN.UPDATE ---
Update Note
Progress Note Update
This is an addendum to the H&P written by Portia Doss on 08/19/2024. Patient seen and examined independently with [employer] BUILDUP ASSISTANT.
73-year-old male past medical history of biliary stricture status post common bile duct stent/sphincterotomy in October later discovered to be cholangiocarcinoma status post Whipple at [facility] on 12/14 on chemotherapy, PAD, cervical degenerative disc
disease, hypertension, presenting with right lower quadrant pain.
Tested positive for COVID on 08/16 and started on Paxlovid.
CT abdomen pelvis shows peritoneal soft tissue stranding unclear etiology to represent palpitations associate with loop of bowel. Soft tissue stranding related to peritoneal carcinomatosis cannot be excluded. There is small bowel dysmotility,
possible ileus. Constipation mild to moderate colonic fecal burden. There is a well-defined soft tissue mass near the root of small bowel mesentery and small mesenteric lymph node suspicious for possible metastatic disease.
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
N.p.o., IV fluids. GI consulted.
Not hypoxic. Can continue Paxlovid for COVID.
[2024-08-20] VITALS: BP 113/55
[2024-08-20 00:17] LABS: COVID-19 Antigen Positive (Negative)
[2024-08-20 01:00] VITALS: BP 115/59
[2024-08-20 02:00] VITALS: BP 137/63; BMI 21.2
--- NOTE | 2024-08-20 02:00 | PTCARENOTE ---
Pt admitted to room 213 from Ed, AAOx3, able to make needs known. c/o pain and tenderness from RUQ, mostly with movements, bowel sound hypoactive. Oriented to room and call light.
[2024-08-20] MEDS: NSS 1000 IV ×2 (02:36→14:37)
[2024-08-20] MEDS: NEURONTIN 100 MG PO ×2 (02:37→21:56)
[2024-08-20] MEDS: MORPHINE SULFATE 4 MG IV (02:38)
[2024-08-20 07:30] VITALS: BP 127/54
[2024-08-20 07:30] LABS: % Basophils 0.8 % (0-2); % Eosinophils 1.6 % (0-6); % Immature Granulocytes 0.4 % (0-0.5); % Lymphocytes 28.2 % (20.5-51.1); % Monocytes 9.4 % (1.7-9.3); % Neutrophils 59.6 % (42.2-75.2); Absolute Basophils 0.1 10^3/uL (0-0.2); Absolute Eosinophils 0.1 10^3/uL (0-0.7); Absolute Lymphocytes 2.2 10^3/uL (1.2-3.4); Absolute Monocytes 0.7 10^3/uL (0.1-0.6); Absolute Neutrophils 4.7 10^3/uL (1.4-6.5); Hematocrit 34.7 % (39.0-52.0); Hemoglobin 11.2 g/dL (13.0-18.0); Mean Corp Hgb Conc. 32.3 g/dL (33.0-37.0); Mean Corpuscular Hgb 30.4 pg (27.0-31.0); Mean Corpuscular Volume 94.3 fL (80.0-94.0); Mean Platelet Volume 9.7 fL (7.4-10.4); Nucleated Red Blood Cells % 0 % (-); Platelet Count 242 10^3/uL (130-400); Red Blood Cell Count 3.68 10^6/uL (4.70-6.10); Red Cell Dist. Width 15.7 % (11.5-14.5); White Blood Cell Count 7.9 10^3/uL (4.8-10.8)
[2024-08-20 07:59] LABS: ALT (SGPT) 33 U/L (0-50); AST (SGOT) 32 U/L (17-59); Albumin 3.8 g/dl (3.5-5.0); Alkaline Phosphatase 189 U/L (38-126); Blood Urea Nitrogen 9 mg/dl (9-20); Calcium 8.7 mg/dl (8.4-10.2); Carbon Dioxide 30 mmol/L (22-30); Chloride 101 mmol/L (98-107); Estimated Creatinine Clearance 96 ml/min; Glucose 85 mg/dl (70-99); Potassium 4.8 mmol/L (3.5-5.1); Sodium 137 mmol/L (135-145); Total Bilirubin 0.3 mg/dl (0.2-1.3); eGFR > 60.00
[2024-08-20 08:27] LABS: Glucose - Point of Care 104 mg/dl (70-99)
[2024-08-20 08:35] LABS: Hepatitis C Antibody Negative (Negative)
[2024-08-20] MEDS: VITAMIN D3 (cholecalciferol) 125 MCG PO (08:48)
[2024-08-20] MEDS: ASPIR LOW (ENTERIC COATED) 81 MG PO (08:48)
[2024-08-20] MEDS: MAGNESIUM OXIDE 500 MG PO ×2 (08:48→20:07)
--- NOTE | 2024-08-20 10:28 | CON.GI ---
Addendum entered and electronically signed by Steve Lozada, 08/20/24 15:18:
I saw and examined the patient.
The BIOLOGICAL SCIENCES PROFESSOR's note was reviewed and I agree with the note.
Comment: Mr Espinosa is a very pleasant 73 y.o male with past medical history of cholangiocarcinoma (s/p Whipple at [facility], 12/2023, on chemo), PAD, cervical DDD, and recent COVID-19 infection (08/16/24, on Paxlovid) who presented to the ED with RLQ
abdominal pain. Denies any similar pain like this in the past or other nausea/vomiting, changes in bowel habits, bloody and/or dark stools. Patient's labs were grossly unremarkable except for an ALP 189 (previously higher in the past 800s) CT
imaging performed on 08/19 revealed stable intrahepatic pneumobilia (expected after s/p Whipple) without biliary ductal dilatation, peritoneal soft tissue stranding (c/f inflammatory vs peritoneal carcinomatosis), possible SB ileus and mild to
moderate colonic fecal burden throughout the colon without abnormal wall thickening or signs of obstruction. Additionally, soft tissue mass near the SB mesentery with an adjacent small mesenteric lymph node concerning for possible metastatic
disease. Clinically, patient likely has a mild small bowel ileus resulting in his presentation and previous abdominal pain along with increased stool burden. COVID-19 infection has been associated with dysmotility of the GI tract and possible cause
of ileus. Although patient is at risk for development of malignant SBO especially concern for peritoneal carcinomatosis given concern for metastatic disease, his symptoms and imaging does not suggest this. Fortunately, patient is having ongoing
bowel function with passage of flatus and small liquid stools without any further abdominal pain, nausea or vomiting and seems to be improving from a GI standpoint.
Recommendations:
- IVF to maintain euvolemia
- Continue CLD for at least 24-48 hrs
- Maintain K > 4.0 and Mg > 2.0 to promote bowel function
- Treatment of COVID-19 as per primary team
- Obtain KUB-obstruction series to ensure improvement of previous SB dilatation
- Start gentle Miralax to help clean out stool without worsening ileus
- Avoid/limit opioids as much as possible
- Encourage ambulation as tolerate within room, OOB, etc
- IV anti-emetics PRN
- Rest of care as outlined below
Discussed with patient's daughter this afternoon regarding recent CT imaging.
GI team will continue to follow. Please call with any questions or concerns.
Original Note:
Consultation
-
Date/Time Consultation Requested: 08/19/24 7068
Date/Time Consultation Performed: 08/20/24 1028
Requesting Provider: Dr. Peck
Performing Provider: Dr. Lozada/LYNETTE Quintero
Reason for Consultation: ileus, cholangiocarnioma
Medical History
Chief Complaint / HPI
Chief Complaint: abdominal pain
History of Present Illness:
73-year-old male with past medical history of cholangiocarcinoma status post Whipple at [facility] (12/15/2023) currently on chemotherapy last dose 3 weeks ago 07/29/2024 was due to have on 08/19/2024 however was held secondary to
being COVID-positive (08/16/2024) started on Paxlovid, ASCVD/PAD, hypertension and cervical DDD Had overall feeling of fatigue, sneezing. Presents to the emergency room with complaints of right lower quadrant discomfort since 08/18/2024. Was
having daily bowel movements until that time. Started with frequent bowel movements. CT abdomen and pelvis shows peritoneal soft tissue stranding to the right of midline in the upper abdomen unclear etiology this may represent inflammatory changes
associated with loop of bowel. Less likely peritoneal carcinomatosis. There are centrally situated small bowel loops with mild fluid distention. Nonspecific. Possible ileus. Mild to moderate colonic fecal burden. Near the root of the small
bowel mesentery there are soft tissue attenuation measuring 2.5 cm transverse with irregular indistinct margins. Small mesenteric lymph node. Suspicious for metastatic disease. Asked to evaluate for the same. Patient states he started with acute
onset of right sided abdominal discomfort which he states was sharp, constant, nothing made better or worse. He did have a fever a couple days prior from [facility]. His bowel movements are usually soft formed and regular. He stopped having a bowel
movement day before last. He did have a bowel movement today however it is pebble-like. He does not usually require a bowel regimen. He did have a PET scan which showed possible inflammation versus metastatic disease. Repeat CT with his
oncologist was planned for September. They did change and increase his chemotherapy for every 2 weeks secondary to the PET scan. The patient's pain did go away last evening. He does have some mild tenderness to the right side. He has no nausea or
vomiting. Currently he denies any fevers, chills, nausea, vomiting, melena, hematochezia, dysphagia or odynophagia. He is interested in trying diet and bowel regimen.
Past Medical History
Past Medical History: Other ([facility] COVID/AAS CVD/PAD/hypertension/cervical DDD)
Past Surgical History: Appendectomy (with partial cecectomy and preservation of IC valve and TI), Orthopedic (cervical fusion, knee arthroscopy) and Tonsilectomy
Social History
Tobacco: Former Smoker (quit 2019)
Alcohol: Daily (several beer occasional wine)
Drug: None
Personal:
Living: With Family
Employment: Retired
Family History
Family History: Other (mother with pancreatic CA, brother with intestinal CA)
Allergies / Home Medications
Allergy/AdvReac Type Severity Reaction Status Date / Time
bee pollen Allergy Anaphylaxis Verified 08/19/24 17:51
�Medication �Instructions �Recorded
aspirin 81 mg tablet,delayed 81 mg PO DAILY Blood Clot 05/28/23
release Prevention/Tx
cholecalciferol (vitamin D3) 125 125 mcg PO DAILY Supplement ##0 05/28/23
mcg (5,000 unit) tablet (Vitamin
D3)
acetaminophen 500 mg tablet 1,000 mg PO Q6HPRN PRN mild 08/19/24
(Tylenol Extra Strength) pain/fever
docusate sodium 100 mg capsule 100 mg PO DAILYPRN PRN constipation 08/19/24
(Colace)
gabapentin 100 mg capsule 100 mg PO HS Neurological Condition 08/19/24
loperamide 2 mg capsule 2 mg PO QIDPRN PRN diarrhea 08/19/24
magnesium oxide 400 mg PO BID Supplement 08/19/24
ondansetron 8 mg disintegrating 8 mg PO Q8HPRN PRN nausea 08/19/24
tablet
prochlorperazine maleate 10 mg 10 mg PO Q6HPRN PRN nausea 08/19/24
tablet (Compazine)
zinc sulfate 50 mg zinc (220 mg) 50 mg PO DAILY Supplement 08/19/24
tablet
zolpidem 5 mg tablet 5 mg PO HSPRN PRN sleep 08/19/24
nirmatrelvir 150 mg-ritonavir 100 2 ea PO BID Infection 08/20/24
mg tablets in a dose pack
(Paxlovid)
Review of Systems
-
All other systems: A 12 pt ROS was Negative except as stated above in HPI
Vital Signs
Temp Pulse Resp BP Pulse Ox
97.7 F 59 17 127/54 94
08/20/24 07:30 08/20/24 07:30 08/20/24 07:30 08/20/24 07:30 08/20/24 07:30
Physical Exam
Exam
General: No Apparent Distress
HEENT: Anicteric
Respiratory: Clear (Anterior)
Cardiac: Regular Rhythm
GI: Soft, Non Distended, Normal Bowel Sounds and Tender (Mild right upper quadrant tenderness)
Musculoskeletal: No Edema
Skin: Warm and Dry
Neuro: AO x 3
Psych: Calm
Results
WBC 7.9 10^3/uL (4.8-10.8) 08/20/24 06:32
Hgb 11.2 g/dL (13.0-18.0) L 08/20/24 06:32
Hct 34.7 % (39.0-52.0) L 08/20/24 06:32
MCV 94.3 fL (80.0-94.0) H 08/20/24 06:32
Plt Count 242 10^3/uL (130-400) 08/20/24 06:32
Absolute Neuts (auto) 4.7 10^3/uL (1.4-6.5) 08/20/24 06:32
Sodium 137 mmol/L (135-145) 08/20/24 06:32
Potassium 4.8 mmol/L (3.5-5.1) 08/20/24 06:32
Chloride 101 mmol/L (98-107) 08/20/24 06:32
Carbon Dioxide 30 mmol/L (22-30) 08/20/24 06:32
BUN 9 mg/dl (9-20) 08/20/24 06:32
Creatinine 0.5 mg/dL (0.7-1.3) L 08/20/24 06:32
Calcium 8.7 mg/dl (8.4-10.2) 08/20/24 06:32
Total Bilirubin 0.3 mg/dl (0.2-1.3) 08/20/24 06:32
AST 32 U/L (17-59) 08/20/24 06:32
ALT 33 U/L (0-50) 08/20/24 06:32
Alkaline Phosphatase 189 U/L (38-126) H 08/20/24 06:32
Lipase 48 U/L (23-300) 08/19/24 18:09
Hepatitis C Antibody Negative (Negative) 08/20/24 06:32
Diagnostic Image Results:
CT Abd Pelvis with IV contrast: Trace pericardial effusion.
Status post Whipple procedure. Intrahepatic pneumobilia. No bile duct dilatation.
Evaluation of the bowel is limited by lack of enteric contrast material. Peritoneal soft tissue stranding is demonstrated to the right of midline in the upper abdomen. Uncertain etiology. This may represent inflammatory changes associated with a
loop of bowel. Soft tissue stranding related to peritoneal carcinomatosis cannot be entirely excluded.
Findings suggest mild small bowel dysmotility. Possible ileus.
Constipation with mild to moderate colonic fecal burden. Minor sigmoid diverticulosis without acute diverticulitis.
Well-defined soft tissue mass near the root of the small bowel mesentery, and small mesenteric lymph node. Findings suspicious for possible metastatic disease.
Prior GI Procedures:
ERCP 10/30/23: The major papilla appeared congested.
- The major papilla appeared to be bulging.
- The major papilla appeared to be ulcerated.
- The major papilla appeared to have a likely mass.
- A single severe biliary stricture was found in the
lower third of the main bile duct at the level of
ampulla.
- The left main hepatic duct, right main hepatic duct,
right intrahepatic branches, left intrahepatic
branches and common bile duct were moderately dilated,
acquired.
- Biopsy was performed ampulla.
- A biliary sphincterotomy was performed.
- Major papilla was successfully dilated.
- One plastic stent was placed into the common bile
duct.
EUS 10/30/23
- There was no sign of significant pathology in the
pancreatic head, genu of the pancreas and pancreatic
body.
- There was dilation in the common bile duct which
measured up to 15 mm.
- Hyperechoic material consistent with sludge was
visualized endosonographically in the common bile duct
and in the gallbladder body.
- A possible mass-like lesion was found in the ampulla.
- There was no evidence of significant pathology in
the left lobe of the liver.
- No specimens collected.
Colonoscopy: Dr. Jean-Baptiste 09/2022 normal
Assessment / Plan
-
73-year-old male with past medical history of cholangiocarcinoma status post Whipple at [facility] (12/15/2023) currently on chemotherapy last dose 3 weeks ago 07/29/2024 was due to have on 08/19/2024 however was held secondary to
being COVID-positive (08/16/2024) started on Paxlovid, ASCVD/PAD, hypertension and cervical DDD Had overall feeling of fatigue, sneezing. Presents to the emergency room with complaints of right lower quadrant discomfort since 08/18/2024. Imaging
CT abdomen pelvis with IV contrast showing peritoneal soft tissue stranding right of midline in the upper abdomen with possible loop of bowel less likely peritoneal carcinomatosis. Findings suggestive of small bowel dysmotility. Possible ileus.
Constipation with mild to moderate colonic fecal burden. Well-defined soft tissue mass near the root of the small bowel mesentery, small mesenteric lymph node. Findings suspicious for possible metastatic disease. WBC 7.9, hemoglobin 11.2,
hematocrit 34.7, platelets 242 sodium 137 potassium 4.8, chloride 101, CO2 30, BUN 9, creatinine 0.5, glucose 85, total bilirubin 0.3, AST 32, ALT 33, alk phos 189
Impression:
Abdominal pain
Ileus
Constipation
COVID 19 on Paxlovid
Cholangiocarcinoma s/p Whipple ([facility] 12/2023) on CTX, on hold secondary to COVID
Possible Metastatic dx seen on Imaging
Plan:
-Tx for COVID as per IM, on Paxlovid
-Continue IVF
-Clear liquid diet, advance as able
-Antiemetic if needed
-Repeat Obstruction series tomorrow
-Most of stool on right side of colon, will need to trickle bowel regimen.
-Follow-up with outpatient heme-onc.
-Further recommendations to be forthcoming
-
-
Thank you for consultation and allowing me to participate in the patient's care. Please call the hot pond operator GI physician during the after hours with any questions or concerns.
[2024-08-20] MEDS: MIRALAX 17 GRAMS PO (12:18)
[2024-08-20 12:23] LABS: Glucose - Point of Care 110 mg/dl (70-99)
[2024-08-20 12:48] VITALS: BMI 21.2
--- NOTE | 2024-08-20 13:51 | W.PN.HOSP.TC ---
Today's Communication/Plan
-
cld
bm regimen
resume paxlovid
Assessment / Plan
Assessment / Plan
Physical Exam
General: Comfortable and Conversant; No Fever or Chills
HEENT: NormoCephalic, Anicteric, Moist mucous membranes, PERRLA, [place] Conjunctivae and No Ptosis
Respiratory: Clear; No Wheezes, Rales or Rhonchi
Cardiac: S1/S2, Regular Rhythm and Other (Port present right upper chest wall); No Murmur, Rub, Gallop or Peripheral Edema
GI: Soft, Non Distended, Normal Bowel Sounds and non tender today
Genito-urinary: Deferred by me
Musculoskeletal: No Clubbing, No Cyanosis and No Edema
Skin: Warm and Dry; No Rash or Jaundice
Neuro: AO x 3, No Motor Deficits, Nonfocal/grossly intact, Cranial Nerves Intact and No Sensory Deficits; No Slurred Speech, Facial Droop, Tremors or Sedated
Psych: Calm
#Abdominal pain secondary to Ileus/Constipation
-most likely worsened by progression of disease/small bowel mesentery
-Well-defined soft tissue mass near the root of the small bowel mesentery, small mesenteric lymph node. Findings suspicious for possible metastatic disease.
-CLD
-Repeat obstruction series tomorrow
-Trickle bowel regimen
-needs close f/u with onc
-IV Zofran as needed, pain control
-IV NSS
#Stranding right of the midline upper abdomen concern for peritoneal carcinomatosis
-GI to follow
-f/u onc outpatient
#SARS-CoV-2
-Patient started Paxlovid 2 days ago Monday and Monday of which she has taken 4 pills so far and has 3 days left
#Cholangiocarcinoma Dx December 2023 with new spread on PET scan 7 weeks ago patient believes site of ampulla however he is not aware of any area near the small bowel
#Status post Libby Kessler 12/15/2023 on current CHEMO last dose 3 weeks ago end of July
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
-Consult GI
-Last chemo was 07/29/2024 he was due to get every 2 weeks but had to be held today 08/19/2024 due to current COVID infection
#ASCVD/PAD
-Continue aspirin 81 mg daily
#Cervical DDD
-Continue gabapentin 100 mg at bedtime
# Former smoker
53 years three-quarter pack a day stopped 2018
#appendectomy with partial cecectomy 05/24/2023
DVT prophylaxis
Subcu Lovenox
DNR per patient
Anticipated Discharge: 24 - 48 hours
Subjective/Interval History
-
Date of Service: August 20, 2024
Mild bowel movement this morning
Objective Data
-
Labs:
Laboratory Results
08/20/24
06:32
WBC 7.9
Hgb 11.2 L
Hct 34.7 L
Plt Count 242
Sodium 137
Potassium 4.8
Chloride 101
Carbon Dioxide 30
BUN 9
Creatinine 0.5 L
Glucose 85
Calcium 8.7
Total Bilirubin 0.3
AST 32
ALT 33
Alkaline Phosphatase 189 H
Vital Signs:
Vital Signs
Temp Pulse Resp BP Pulse Ox
97.7 F 59 17 127/54 94
08/20/24 07:30 08/20/24 07:30 08/20/24 07:30 08/20/24 07:30 08/20/24 13:14
I&O
08/19/24 08/20/24 08/21/24
06:59 06:59 06:59
Intake Total 480 / 480
Balance 480 / 480
Review of Systems
-
History Source: Patient
All other systems: Not reviewed unless documented
Data Reviewed
-
CT Scan: Report Reviewed by me
Labs: Labs Reviewed by me
--- NOTE | 2024-08-20 15:09 | CM ---
Reviewed the chart notes and spoke with the patient via telephone due to the patient being Covid +. Patient is status post [place] Nini Kessler 12/15/2023 for cholangiocarcinoma on current chemotherapy last dose 3 weeks ago end of July. Next does
postponed due to being Covid +. The patient resides with his spouse in a one story home with three steps to enter. The patient reports no DME/VN/SNF in the past. The patient confirmed his PCP is Dr. López Richardson and his pharmacy of choice is the
[facility]. CM continues to be available to patient/family and is monitoring medical plan for needs at discharge.
Plan: Discharge to home when medically stable. No needs anticipated at time of discharge.
[2024-08-20 15:35] VITALS: BP 122/55
[2024-08-20] MEDS: LOVENOX 40 MG SC (17:18)
[2024-08-20 23:26] VITALS: BP 132/53
[2024-08-21] MEDS: NSS 1000 IV ×2 (01:36→11:20)
[2024-08-21 06:00] VITALS: BMI 21.0
--- NOTE | 2024-08-21 06:17 | W.PN.GI.CBS2 ---
Today's Communication / Plan
-
Obstruction series with significant improvement and without any further bowel dilatation. Ongoing bowel function after miralax and may advance diet as tolerated to regular solid food. Would continue to monitor to ensure patient is tolerating solids
prior to discharge. See rest of care as outlined below.
Assessment / Plan
-
#SB Ileus
#Increased Stool [place] on CT
#Constipation
#COVID-19 Infection (on paxlovid)
#Hx of Cholangiocarcinoma (s/p Whipple 12/2023)
#C/f Peritoneal Carcinomatosis
Mr Espinosa is a very pleasant 73 y.o male with past medical history of cholangiocarcinoma (s/p Whipple at [facility], 12/2023, on chemo), PAD, cervical DDD, and recent COVID-19 infection (08/16/24, on Paxlovid) who presented to the ED with RLQ abdominal
pain. Denies any similar pain like this in the past or other nausea/vomiting, changes in bowel habits, bloody and/or dark stools. Patient's labs were grossly unremarkable except for an ALP 189 (previously higher in the past 800s) CT imaging
performed on 08/19 revealed stable intrahepatic pneumobilia (expected after s/p Whipple) without biliary ductal dilatation, peritoneal soft tissue stranding (c/f inflammatory vs peritoneal carcinomatosis), possible SB ileus and mild to moderate
colonic fecal burden throughout the colon without abnormal wall thickening or signs of obstruction. Additionally, soft tissue mass near the SB mesentery with an adjacent small mesenteric lymph node concerning for possible metastatic disease.
Clinically, patient likely has a mild small bowel ileus resulting in his presentation and previous abdominal pain along with increased stool burden. COVID-19 infection has been associated with dysmotility of the GI tract and possible cause of ileus.
Although patient is at risk for development of malignant SBO especially concern for peritoneal carcinomatosis given concern for metastatic disease, his symptoms and imaging does not suggest this. Fortunately, patient is having ongoing bowel function
with passage of flatus and small liquid stools without any further abdominal pain, nausea or vomiting and seems to be improving from a GI standpoint.
S/p miralax purge on 08/20 with significant relief of symptoms with passage of brown stools and ongoing flatus with recent KUB suggesting resolving ileus without any SB or colonic dilatation or other findings to suggest obstruction.
Recommendations:
- Tolerating CLD with improving symptoms. Okay to ADAT to regular diet
- May stop IVF as tolerating p.o intake
- Maintain K > 4.0 and Mg > 2.0 to promote bowel function
- Treatment of COVID-19 as per primary team
- Would continue Miralax 17 gm BiD and senna qhs as ongoing bowel regimen
- Avoid/limit opioids as much as possible
- Encourage ambulation as tolerate within room, OOB, etc
- IV anti-emetics PRN
- Rest of care as outlined below
Favor monitoring throughout today to ensure patient is tolerating regular food. If ongoing improving symptoms, may be discharged from a GI standpoint either later this evening versus tomorrow AM. Will continue to follow while inpatient. Please call
with any questions or concerns.
Discussed with both patient and primary internal medicine team this AM.
Subjective
Subjective
Date of Service: August 21, 2024
- No acute events overnight
- X-ray Obstruction Series 08/21 with moderate amount of gas within nondilated loops of bowel but without any bowel wall dilatation or other evidence to suggest obstruction, no other soft tissue masses
Feeling well this morning, notes complete resolution of his previous abdominal pain and without any discomfort this morning or overnight. No nausea, vomiting or other concerning symptoms. Reports having three softer bowel movements over the past 24
hrs yesterday after miralax prep. Continues to pass flatus this AM. No other fevers/chills or other constitutional symptoms.
Objective
Data Reviewed
Laboratory Data:
Laboratory Results
Total Bilirubin 0.3 mg/dl (0.2-1.3) 08/20/24 06:32
AST 32 U/L (17-59) 08/20/24 06:32
ALT 33 U/L (0-50) 08/20/24 06:32
Alkaline Phosphatase 189 U/L (38-126) H 08/20/24 06:32
Lipase 48 U/L (23-300) 08/19/24 18:09
Vital Signs and I&O:
Vital Signs
Temp Pulse Resp BP Pulse Ox
97.5 F 58 19 132/53 97
08/20/24 23:26 08/20/24 23:26 08/20/24 23:26 08/20/24 23:26 08/20/24 23:26
I&O
08/19/24 08/20/24 08/21/24
06:59 06:59 06:59
Intake Total 480 / 480 660 / 660
Balance 480 / 480 660 / 660
Physical Exam
Physical Exam
HEENT: Anicteric and Moist mucous membranes
Pulmonary: Other (Normal WOB on room air)
GI: Soft, Non Distended (Minimal distension) and Non Tender
Extremities: No Edema
Neuro: Non Focal
[2024-08-21 07:30] VITALS: BP 133/56
[2024-08-21 08:25] LABS: % Basophils 0.5 % (0-2); % Immature Granulocytes 0.3 % (0-0.5); % Monocytes 7.9 % (1.7-9.3); % Neutrophils 64.3 % (42.2-75.2); Absolute Eosinophils 0.2 10^3/uL (0-0.7); Absolute Lymphocytes 1.8 10^3/uL (1.2-3.4); Absolute Monocytes 0.6 10^3/uL (0.1-0.6); Absolute Neutrophils 4.7 10^3/uL (1.4-6.5); Hematocrit 33.1 % (39.0-52.0); Mean Corp Hgb Conc. 33.2 g/dL (33.0-37.0); Mean Corpuscular Hgb 31.1 pg (27.0-31.0); Mean Corpuscular Volume 93.5 fL (80.0-94.0); Mean Platelet Volume 9.7 fL (7.4-10.4); Nucleated Red Blood Cells % 0 % (-); Platelet Count 220 10^3/uL (130-400); Red Blood Cell Count 3.54 10^6/uL (4.70-6.10); Red Cell Dist. Width 15.1 % (11.5-14.5); White Blood Cell Count 7.4 10^3/uL (4.8-10.8)
[2024-08-21] MEDS: MIRALAX 17 GRAMS PO (08:30)
[2024-08-21] MEDS: MAGNESIUM OXIDE 500 MG PO ×2 (08:30→19:40)
[2024-08-21] MEDS: VITAMIN D3 (cholecalciferol) 125 MCG PO (08:30)
[2024-08-21] MEDS: ASPIR LOW (ENTERIC COATED) 81 MG PO (08:30)
[2024-08-21 08:56] LABS: ALT (SGPT) 31 U/L (0-50); AST (SGOT) 31 U/L (17-59); Albumin 3.6 g/dl (3.5-5.0); Alkaline Phosphatase 187 U/L (38-126); Blood Urea Nitrogen 8 mg/dl (9-20); Calcium 8.7 mg/dl (8.4-10.2); Carbon Dioxide 27 mmol/L (22-30); Chloride 101 mmol/L (98-107); Estimated Creatinine Clearance 95 ml/min; Glucose 90 mg/dl (70-99); Potassium 4.7 mmol/L (3.5-5.1); Sodium 136 mmol/L (135-145); Total Bilirubin 0.5 mg/dl (0.2-1.3); eGFR > 60.00
--- NOTE | 2024-08-21 14:58 | CM ---
Reviewed the chart notes. Diet advanced to regular. CM continues to be available to patient/family and is monitoring medical plan for needs at discharge.
Plan: Discharge to home when medically stable. No needs anticipated.
--- NOTE | 2024-08-21 15:20 | W.PN.HOSP.TC ---
Today's Communication/Plan
-
Trial low fat diet
bm regimen
will need close gi/onc/ pcp f/u
Assessment / Plan
Assessment / Plan
Physical Exam
General: Comfortable and Conversant; No Fever or Chills
HEENT: NormoCephalic, Anicteric, Moist mucous membranes, PERRLA, [place] Conjunctivae and No Ptosis
Respiratory: Clear; No Wheezes, Rales or Rhonchi
Cardiac: S1/S2, Regular Rhythm and Other (Port present right upper chest wall); No Murmur, Rub, Gallop or Peripheral Edema
GI: Soft, Non Distended, Normal Bowel Sounds and non tender today
Genito-urinary: Deferred by me
Musculoskeletal: No Clubbing, No Cyanosis and No Edema
Skin: Warm and Dry; No Rash or Jaundice
Neuro: AO x 3, No Motor Deficits, Nonfocal/grossly intact, Cranial Nerves Intact and No Sensory Deficits; No Slurred Speech, Facial Droop, Tremors or Sedated
Psych: Calm
#Abdominal pain secondary to Ileus/Constipation
-most likely worsened by progression of disease/small bowel mesentery
-Well-defined soft tissue mass near the root of the small bowel mesentery, small mesenteric lymph node. Findings suspicious for possible metastatic disease.
-Repeat obstruction series - no evidence of obstruction: significant improvement and without any further bowel dilatation.
-Trial Low fat diet
-Trickle bowel regimen
-needs close f/u with onc
-IV Zofran as needed, pain control
-IV NSS
#Stranding right of the midline upper abdomen concern for peritoneal carcinomatosis
-GI to follow
-f/u onc outpatient
#SARS-CoV-2
-Patient started Paxlovid 2 days ago Monday and Monday of which she has taken 4 pills so far and has 3 days left
-does not want Paxlovid
#Cholangiocarcinoma Dx December 2023 with new spread on PET scan 7 weeks ago patient believes site of ampulla however he is not aware of any area near the small bowel
#Status post Whipple Nini [place] 12/15/2023 on current CHEMO last dose 3 weeks ago end of July
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
-Consult GI
-Last chemo was 07/29/2024 he was due to get every 2 weeks but had to be held today 08/19/2024 due to current COVID infection
#ASCVD/PAD
-Continue aspirin 81 mg daily
#Cervical DDD
-Continue gabapentin 100 mg at bedtime
# Former smoker
53 years three-quarter pack a day stopped 2018
#appendectomy with partial cecectomy 05/24/2023
DVT prophylaxis
Subcu Lovenox
DNR per patient
More than 30 minutes spent in discharge including
Final examination of the patient
Summarizing hospital stay
Instructions for continuing care to all relevant caregivers
Preparation of discharge records, prescriptions, and referral forms
Total time spent (36 in minutes):
Anticipated Discharge: Today
Subjective/Interval History
-
Date of Service: August 21, 2024
Symptoms improved, desires to eat
Objective Data
-
Labs:
Laboratory Results
08/21/24
07:10
WBC 7.4
Hgb 11.0 L
Hct 33.1 L
Plt Count 220
Sodium 136
Potassium 4.7
Chloride 101
Carbon Dioxide 27
BUN 8 L
Creatinine 0.5 L
Glucose 90
Calcium 8.7
Total Bilirubin 0.5
AST 31
ALT 31
Alkaline Phosphatase 187 H
Vital Signs:
Vital Signs
Temp Pulse Resp BP Pulse Ox
98.1 F 58 17 133/56 94
08/21/24 07:30 08/21/24 07:30 08/21/24 07:30 08/21/24 07:30 08/21/24 07:30
I&O
08/20/24 08/21/24 08/22/24
06:59 06:59 06:59
Intake Total 480 / 480 1140 / 1140
Balance 480 / 480 1140 / 1140
Review of Systems
-
History Source: Patient
All other systems: Not reviewed unless documented
Data Reviewed
-
CT Scan: Report Reviewed by me
Labs: Labs Reviewed by me
[2024-08-21 15:29] VITALS: BP 123/58
[2024-08-21] MEDS: LOVENOX 40 MG SC (17:30)
[2024-08-21] MEDS: NEURONTIN 100 MG PO (21:35)
[2024-08-21 23:16] VITALS: BP 137/59
--- NOTE | 2024-08-22 05:41 | W.PN.GI.CBS2 ---
Today's Communication / Plan
-
Improved symptoms and having ongoing bowel function. KUB with resolution of previous mild bowel dilatation, consistent with resolved mild ileus and previous constipation given stool burden on CT imaging. Recommend ongoing bowel regimen at home. See
rest of care as outlined below. GI will sign-off, please call back with any questions or concerns.
Assessment / Plan
-
#SB Ileus
#Increased Stool [place] on CT
#Constipation
#COVID-19 Infection (on paxlovid)
#Hx of Cholangiocarcinoma (s/p Whipple 12/2023)
#C/f Peritoneal Carcinomatosis
Mr Espinosa is a very pleasant 73 y.o male with past medical history of cholangiocarcinoma (s/p Whipple at [facility], 12/2023, on chemo), PAD, cervical DDD, and recent COVID-19 infection (08/16/24, on Paxlovid) who presented to the ED with RLQ abdominal
pain. Denies any similar pain like this in the past or other nausea/vomiting, changes in bowel habits, bloody and/or dark stools. Patient's labs were grossly unremarkable except for an ALP 189 (previously higher in the past 800s) CT imaging
performed on 08/19 revealed stable intrahepatic pneumobilia (expected after s/p Whipple) without biliary ductal dilatation, peritoneal soft tissue stranding (c/f inflammatory vs peritoneal carcinomatosis), possible SB ileus and mild to moderate
colonic fecal burden throughout the colon without abnormal wall thickening or signs of obstruction. Additionally, soft tissue mass near the SB mesentery with an adjacent small mesenteric lymph node concerning for possible metastatic disease.
Clinically, patient likely has a mild small bowel ileus resulting in his presentation and previous abdominal pain along with increased stool burden. COVID-19 infection has been associated with dysmotility of the GI tract and possible cause of ileus.
Although patient is at risk for development of malignant SBO especially concern for peritoneal carcinomatosis given concern for metastatic disease, his symptoms and imaging does not suggest this. Fortunately, patient is having ongoing bowel function
with passage of flatus and small liquid stools without any further abdominal pain, nausea or vomiting and seems to be improving from a GI standpoint.
X-ray Obstruction Series 08/21 with moderate amount of gas within nondilated loops of bowel but without any bowel wall dilatation or other evidence to suggest obstruction, no other soft tissue masses
S/p miralax purge on 08/20 with significant relief of symptoms with passage of brown stools and ongoing flatus with recent KUB 08/21 suggesting resolving ileus without any SB or colonic dilatation or other findings to suggest obstruction.
Recommendations:
- Tolerating regular diet without difficulty
- Maintain K > 4.0 and Mg > 2.0 to promote bowel function
- Treatment of COVID-19 as per primary team
- Would continue Miralax 17 gm BiD (or OTC Fiber supplementation- Metamucil, etc) and senna qhs as ongoing bowel regimen as an outpatient
- Avoid/limit opioids as much as possible
- Encourage ambulation as tolerate within room, OOB, etc
- IV anti-emetics PRN
- Needs close follow-up with his primary Oncologist as an outpatient
- Rest of care as outlined below
May be discharged later today from a GI standpoint given resolution of symptoms. Discussed with both patient and primary internal medicine team this AM.
GI will sign-off, please call with any questions or concerns.
Subjective
Subjective
Date of Service: August 22, 2024
- No acute events overnight
Feeling well, had one BM yesterday afternoon. Continues to pass flatus, discussed recent findings of KUB with significant improvement. Tolerating solid food without difficulty without any abdominal discomfort, nausea/vomiting or other abdominal
pain. Patient's daughter at bedside and discussed his recent hospital course as well.
Objective
Data Reviewed
Laboratory Data:
Laboratory Results
Total Bilirubin 0.5 mg/dl (0.2-1.3) 08/21/24 07:10
AST 31 U/L (17-59) 08/21/24 07:10
ALT 31 U/L (0-50) 08/21/24 07:10
Alkaline Phosphatase 187 U/L (38-126) H 08/21/24 07:10
Lipase 48 U/L (23-300) 08/19/24 18:09
Vital Signs and I&O:
Vital Signs
Temp Pulse Resp BP Pulse Ox
97.7 F 62 19 137/59 98
08/21/24 23:16 08/21/24 23:16 08/21/24 23:16 08/21/24 23:16 08/21/24 23:16
I&O
08/20/24 08/21/24 08/22/24
06:59 06:59 06:59
Intake Total 480 / 480 1140 / 1140 2039
Balance 480 / 480 1140 / 1140 2039
Physical Exam
Physical Exam
HEENT: Anicteric and Moist mucous membranes
Pulmonary: Other (Normal WOB on room air)
GI: Soft, Non Distended and Non Tender
Extremities: No Edema
Neuro: Non Focal
[2024-08-22 06:00] VITALS: BMI 21.0
[2024-08-22 07:10] VITALS: BP 145/67
[2024-08-22 07:41] LABS: % Basophils 0.4 % (0-2); % Eosinophils 3.1 % (0-6); % Immature Granulocytes 0.5 % (0-0.5); % Monocytes 6.7 % (1.7-9.3); % Neutrophils 66.3 % (42.2-75.2); Absolute Eosinophils 0.3 10^3/uL (0-0.7); Absolute Lymphocytes 1.9 10^3/uL (1.2-3.4); Absolute Monocytes 0.6 10^3/uL (0.1-0.6); Absolute Neutrophils 5.5 10^3/uL (1.4-6.5); Hemoglobin 11.6 g/dL (13.0-18.0); Mean Corp Hgb Conc. 32.2 g/dL (33.0-37.0); Mean Corpuscular Hgb 30.4 pg (27.0-31.0); Mean Corpuscular Volume 94.2 fL (80.0-94.0); Mean Platelet Volume 9.2 fL (7.4-10.4); Nucleated Red Blood Cells % 0 % (-); Platelet Count 231 10^3/uL (130-400); Red Blood Cell Count 3.82 10^6/uL (4.70-6.10); Red Cell Dist. Width 14.8 % (11.5-14.5); White Blood Cell Count 8.3 10^3/uL (4.8-10.8)
[2024-08-22 07:54] LABS: ALT (SGPT) 31 U/L (0-50); AST (SGOT) 32 U/L (17-59); Alkaline Phosphatase 203 U/L (38-126); Blood Urea Nitrogen 9 mg/dl (9-20); Calcium 9.2 mg/dl (8.4-10.2); Carbon Dioxide 29 mmol/L (22-30); Chloride 101 mmol/L (98-107); Estimated Creatinine Clearance 96 ml/min; Glucose 104 mg/dl (70-99); Potassium 4.8 mmol/L (3.5-5.1); Sodium 136 mmol/L (135-145); Total Bilirubin 0.3 mg/dl (0.2-1.3); Total Protein 6.5 g/dl (6.3-8.2); eGFR > 60.00
[2024-08-22] MEDS: MAGNESIUM OXIDE 500 MG PO (08:11)
[2024-08-22] MEDS: VITAMIN D3 (cholecalciferol) 125 MCG PO (08:11)
[2024-08-22] MEDS: MIRALAX 17 GRAMS PO (08:11)
[2024-08-22] MEDS: ASPIR LOW (ENTERIC COATED) 81 MG PO (08:11)
[2024-08-22 08:31] VITALS: BP 145/67
--- NOTE | 2024-08-22 09:21 | CM ---
Addendum entered by Suzan Ackerman RN 08/22/24 12:01:
Patient being discharged today. Son-in-law to transport home.
Original Note:
Reviewed the chart notes and spoke with the patient via telephone (due to Covid + status). Reviewed IMM and copy provided to the patient via staff. CM continues to be available to patient/family and is monitoring medical plan for needs at
discharge.
Plan: Discharge to home when medically stable. No needs anticipated.
--- NOTE | 2024-08-22 11:55 | W.PN.HOSP.TC ---
Today's Communication/Plan
-
Would continue Miralax 17 gm BiD (or OTC Fiber supplementation- Metamucil, etc) and senna qhs as ongoing bowel regimen as an outpatient
ambulation
Close onc f/u
Assessment / Plan
Assessment / Plan
Physical Exam
General: Comfortable and Conversant; No Fever or Chills
HEENT: NormoCephalic, Anicteric, Moist mucous membranes, PERRLA, [place] Conjunctivae and No Ptosis
Respiratory: Clear; No Wheezes, Rales or Rhonchi
Cardiac: S1/S2, Regular Rhythm and Other (Port present right upper chest wall); No Murmur, Rub, Gallop or Peripheral Edema
GI: Soft, Non Distended, Normal Bowel Sounds and non tender today
Genito-urinary: Deferred by me
Musculoskeletal: No Clubbing, No Cyanosis and No Edema
Skin: Warm and Dry; No Rash or Jaundice
Neuro: AO x 3, No Motor Deficits, Nonfocal/grossly intact, Cranial Nerves Intact and No Sensory Deficits; No Slurred Speech, Facial Droop, Tremors or Sedated
Psych: Calm
#Abdominal pain secondary to Ileus/Constipation
-most likely worsened by progression of disease/small bowel mesentery
-Well-defined soft tissue mass near the root of the small bowel mesentery, small mesenteric lymph node. Findings suspicious for possible metastatic disease.
-Repeat obstruction series - no evidence of obstruction: significant improvement and without any further bowel dilatation.
-Trial Low fat diet - tolerating
-Trickle bowel regimen: Would continue Miralax 17 gm BiD (or OTC Fiber supplementation- Metamucil, etc) and senna qhs as ongoing bowel regimen as an outpatient
-needs close f/u with onc
-IV Zofran as needed, pain control
-IV NSS
#Stranding right of the midline upper abdomen concern for peritoneal carcinomatosis
-GI to follow
-f/u onc outpatient
#SARS-CoV-2
-Patient started Paxlovid 2 days ago Monday and Monday of which she has taken 4 pills so far and has 3 days left
-does not want Paxlovid
#Cholangiocarcinoma Dx December 2023 with new spread on PET scan 7 weeks ago patient believes site of ampulla however he is not aware of any area near the small bowel
#Status post Whipple Nini Kessler 12/15/2023 on current CHEMO last dose 3 weeks ago end of July
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
-Consult GI
-Last chemo was 07/29/2024 he was due to get every 2 weeks but had to be held today 08/19/2024 due to current COVID infection
#ASCVD/PAD
-Continue aspirin 81 mg daily
#Cervical DDD
-Continue gabapentin 100 mg at bedtime
# Former smoker
53 years three-quarter pack a day stopped 2018
#appendectomy with partial cecectomy 05/24/2023
DVT prophylaxis
Subcu Lovenox
DNR per patient
More than 30 minutes spent in discharge including
Final examination of the patient
Summarizing hospital stay
Instructions for continuing care to all relevant caregivers
Preparation of discharge records, prescriptions, and referral forms
Total time spent (35 in minutes):
Anticipated Discharge: Today
Subjective/Interval History
-
Date of Service: August 22, 2024
Had small bowel movement again, feels better
Objective Data
-
Labs:
Laboratory Results
08/22/24
07:06
WBC 8.3
Hgb 11.6 L
Hct 36.0 L
Plt Count 231
Sodium 136
Potassium 4.8
Chloride 101
Carbon Dioxide 29
BUN 9
Creatinine 0.5 L
Glucose 104 H
Calcium 9.2
Total Bilirubin 0.3
AST 32
ALT 31
Alkaline Phosphatase 203 H
Vital Signs:
Vital Signs
Temp Pulse Resp BP Pulse Ox
98.0 F 66 16 145/67 96
08/22/24 07:10 08/22/24 07:10 08/22/24 07:10 08/22/24 07:10 08/22/24 09:29
I&O
08/21/24 08/22/24 08/23/24
06:59 06:59 06:59
Intake Total 1140 / 1140 2720 / 2720
Balance 1140 / 1140 2720 / 2720
Review of Systems
-
History Source: Patient
All other systems: Not reviewed unless documented
Data Reviewed
-
CT Scan: Report Reviewed by me
Labs: Labs Reviewed by me
--- NOTE | 2024-08-22 12:03 | W.DS.TRANS ---
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
-
Discharge Instructions:
Discharge Diagnosis/Procedures #SB Ileus
#Increased Stool [place] on CT
#Constipation
#COVID-19 Infection
Diet Regular
Blood Work K>4 and Mag >2 outpatient f/u
Others Tests CT abdomen/pelvis and other further imaging
modalities required by oncology
Instructions:
Stand-Alone Forms:
Changes to Home Medications: Yes
Discharge Medications:
DC Medications w/original date entered in [employer]
aspirin 81 mg tablet,delayed release 81 mg PO DAILY Blood Clot Prevention/Tx 05/28/23
cholecalciferol (vitamin D3) 125 mcg (5,000 unit) tablet (Vitamin D3) 125 mcg PO DAILY Supplement ##0 05/28/23
acetaminophen 500 mg tablet (Tylenol Extra Strength) 1,000 mg PO Q6HPRN PRN mild pain/fever 08/19/24
docusate sodium 100 mg capsule (Colace) 100 mg PO DAILYPRN PRN constipation 08/19/24
gabapentin 100 mg capsule 100 mg PO HS Neurological Condition 08/19/24
loperamide 2 mg capsule 2 mg PO QIDPRN PRN diarrhea 08/19/24
magnesium oxide 400 mg PO BID Supplement 08/19/24
ondansetron 8 mg disintegrating tablet 8 mg PO Q8HPRN PRN nausea 08/19/24
prochlorperazine maleate 10 mg tablet (Compazine) 10 mg PO Q6HPRN PRN nausea 08/19/24
zinc sulfate 50 mg zinc (220 mg) tablet 50 mg PO DAILY Supplement 08/19/24
zolpidem 5 mg tablet 5 mg PO HSPRN PRN sleep 08/19/24
polyethylene glycol 3350 17 gram oral powder packet 17 g PO BID #100 ea 08/22/24
sennosides 8.6 mg capsule (senna) 8.6 mg PO DAILY #360 caps 08/22/24
Home Medication Changes
polyethylene glycol 3350 17 gram oral powder packet 17 g PO BID #100 ea 08/22/24
sennosides 8.6 mg capsule (senna) 8.6 mg PO DAILY #360 caps 08/22/24
Pending Results: No
[2024-08-22 12:42] LABS: Magnesium 2.3 mg/dl (1.6-2.3)
[2024-08-22 13:30] VITALS: BP 124/59
== END 2024-08-22 13:39 | disposition home or self-care (01) | DRG 374 ==
LOC: 2 NORTH 23:58
PROVIDERS: Clinical Nurse Specialist Family Health; Registered Nurse; ADMITTING PHYSICIAN Hospitalist; ATTENDING PHYSICIAN Internal Medicine; CONSULT PHYSICIAN Student in an Organized Health Care Education/Training Program; EMERGENCY PHYSICIAN Emergency Medicine
DX: C78.4 Secondary malignant neoplasm of small intestine (principal); U07.1 COVID-19; C22.1 Intrahepatic bile duct carcinoma; K56.7 Ileus, unspecified; I25.10 Atherosclerotic heart disease of native coronary artery without angina pectoris; Z79.82 Long term (current) use of aspirin
CPT/HCPCS: 74022; 74177; 80053; 82962; 83690; 83735; 85025; 86803; 87811; 96374; 96375; 96376; 99285; Q9967